=== PATIENT | male | born 1960 | race Caucasian/White ===

== ENCOUNTER 2025-01-15 14:57 | Inpatient (IN) | payer OTHER ==
[~2025-01-15] VITALS: Ht 182.9 cm; Wt 92.9 kg
--- NOTE | 2025-01-15 15:11 | ED.PDOC ---
History of Present Illness HPI Comments 64 y.o male with PMHx of HTN, HLD and tracheostomy, presents to the ED via EMS for an evaluation of HBP x today. EMS reports patient has 24 hour home health care nurse who noted elevated blood pressure today, on scene EMS had a pressure of 215/197 with a repeat reading of 238/78 upon ED arrival. Patient is as ymptomatic at this time, only complains of right arm and hand pain due to transportation to the ED. Chief Complaint: High Blood Pressure Time Seen by MD: 15:00 Reviewed Notes: Nurses Notes, Bindery Machine Tender Notes, Medications, Allergies Allergies: Coded Allergies: Empagliflozin (Verified Allergy, Unknown, 01/15/25) Information Source: Patient, Emergency Med Personnel Mode of Arrival: EMS Severity: Mild Timing: Hours Duration: Since onset Past Medical History PAST MEDICAL HISTORY: High Lipids, HTN Surgical History (Other): tracheostomy, and right acl Family History Family History: Reviewed,noncontributory to illness Social History Smoker: Non-Smoker Alcohol: Denies ETOH Use Drugs: Denies Drug Use Lives In: Home Constitutional: denies: chills, diaphoresis, fatigue, fever, malaise, sweats, weakness, others EENTM: denies: blurred vision, double vision, ear bleeding, ear discharge, ear drainage, ear pain, ear ringing, eye pain, eye redness, hearing loss, mouth pa in, mouth swelling, nasal discharge, nose bleeding, nose congestion, nose pain, photophobia, tearing, throat pain, throat swelling, voice changes, others Respiratory: denies: cough, hemoptysis, orthopnea, SOB at rest, shortness of breath, SOB with excertion, stridor, wheezing, others Cardiovascular: denies: chest pain, dizzy spells, diaphoresis, Dyspnea on exertion, edema, irregular heart beat, left arm pain, lightheadedness, palpitations, PND, syncope, others Gastrointestinal: denies: abdomen distended, abdominal pain, blood streaked bowels, constipated, diarrhea, dysphagia, difficulty swallowing, hematemesis, melena, nausea, poor appetite, poor fluid intake, rectal bleeding, rectal pain, vomiting, others Genitourinary: denies: burning, dysuria, flank pain, frequency, hematuria, incontinence, penile discharge, penile sore, pain, testicle pain, testicle swelling, urgency, others Neurological: denies: dizziness, fainting, headache, left sided numbness, left sided weakness, numbness, paresthesia, pre-existing deficit, right sided numbness, right sided weakness, seizure, speech problems, tingling, tremors, weakness, others Musculoskeletal: denies: back pain, gout, joint pain, joint swelling, muscle pain, muscle stiffness, neck pain, others Integumetry: denies: bruises, change in color, change in hair/nails, dryness, laceration, lesions, lumps, rash, wounds, others Allergic/Immunocompromised: denies: Difficulty Healing, Frequent Infections, Hives, Itching, others Hematologic/Lymphatic: denies: anemia, blood clots, easy bleeding, easy bruising, swollen glands, others Endocrine: denies: excessive hunger, excessive sweating, excessive thirst, excessive urination, flushing, intolerance to cold, intolerance to heat, unexplained weight gain, unexplained weight loss, others Psychiatric: denies: anxiety, bipolar disorder, depression, hopeless, panic disorder, schizophrenia, sleepless, suicidal, others All Other Systems: Reviewed and Negative Physical Exam General Appearance: Moderate Distress HEENT: Normal ENT Inspection, Pharynx Normal, TMs Normal Neck: Full Range of Motion, Non-Tender, Normal, Normal Inspection, Other (The patient has a tracheotomy placed) Respiratory: Chest Non-Tender, Lungs Clear, No Accessory Muscle Use, No Respiratory Distress, Normal Breath Sounds Cardiovascular: No Edema, No JVD, No Murmur, No Gallop, Normal Peripheral Pulses, Regular Rate/Rhythm Breast Exam: Deferred Gastrointestinal: No Organomegaly, Non Tender, No Pulsatile Mass, Normal Bowel Sounds, Soft Genitalia: Deferred Pelvic: Deferred Rectal: Deferred Extremities: No calf tenderness, Normal capillary refill, Normal inspection, Normal range of motion, Non-tender, No pedal edema Musculoskeletal : Apperance: Normal Neurologic: Alert, meter technician II-XII nml as Tested, No Motor Deficits, Normal Affect, Normal Mood, No Sensory Deficits Cerebellar Function: Normal Reflexes: Normal Skin: Dry, Normal Color, Warm Lymphatic: No Adenopathy Was a procedure done? Was a procedure done?: No Differential Dx Considerations may include: Essential HTN, Pulmonary HTN, Renal Artery Stenosis, Primary Aldosteronism , Ch ronic Kidney Disease X-Ray, Labs, Meds, VS Vital Signs Date Time Temp Pulse Resp B/P (MAP) Pulse Ox O2 Delivery O2 Flow Rate FiO2 01/15/25 20:18 99 Mechanical Ventilator+ 36 36 01/15/25 20:18 26 99 Mechanical Ventilator+ 36 36 01/15/25 16:37 91 01/15/25 16:15 Trach Collar 4 N/A 01/15/25 16:00 88 130/78 (95) 100 01/15/25 14:59 98.2 93 17 238/78 (131) 97 98.2 Lab Test 01/15/25 19:01 01/15/25 15:21 Range/Units POC Glucose 157 H 70-106 mg/dl White Blood Count 17.7 H 4.4-10.8 10^3/uL Red Blood Count 5.59 4.5-5.90 10^6/uL Hemoglobin 16.8 13.5-17.5 g/dL Hematocrit 50.5 41.0-53.0 % Mean Corpuscular Volume 90.4 80.0-100.0 fL Mean Corpuscular Hemoglobin 30.0 28.0-32.0 pg Mean Corpuscular Hemoglobin Concent 33.2 32.0-36.0 g/dL Red Cell Distribution Width 15.5 H 11.8-14.3 % Platelet Count 249 140-450 10^3/uL Mean Platelet Volume 10.0 6.9-10.8 fL Neutrophils (%) (Auto) 84.7 H 37.0-80.0 % Lymphocytes (%) (Auto) 4.5 L 10.0-50.0 % Monocytes (%) (Auto) 10.2 0.0-12.0 % Eosinophils (%) (Auto) 0.2 0.0-7.0 % Basophils (%) (Auto) 0.4 0.0-2.0 % Neutrophils # (Auto) 15.0 H 1.6-8.6 10 ^3/uL Lymphocytes # (Auto) 0.8 0.4-5.4 10 ^3/uL Monocytes # (Auto) 1.8 H 0-1.3 10 ^3/uL Eosinophils # (Auto) 0 0-0.8 10 ^3/uL Basophils # (Auto) 0.1 0-0.2 10 ^3/uL Nucleated Red Blood Cells 0.1 % Sodium Level 133 L 136-145 mmol/L Potassium Level 3.5 3.5-5.1 mmol/L Chloride Level 98 98-107 mmol/L Carbon Dioxide Level 23 20-31 mmol/L Anion Gap 12 5-15 Blood Urea Nitrogen 8 L 9-23 mg/dL Creatinine 0.21 L 0.700-1.30 mg/dL Glomerular Filtration Rate Calc 146 >90 mL/min BUN/Creatinine Ratio 38.1 H 10.0-20.0 Serum Glucose 138 H 74-106 mg/dL Calcium Level 9.1 8.7-10.4 mg/dL B-Type Natriuretic Peptide 44.98 0-100 pg/mL Current Medications Medications (Trade) Dose Ordered Sig/Robe Route Start Time Stop Time Status Last Admin Atropine Sulfate (Atropine Sulfate) 1 mg ONCE ONCE IV 01/15/25 17:30 01/15/25 17:31 DC 01/15/25 17:30 EXAM: XR Chest, 1 View IMPRESSION: Cardiomegaly with mild pulmonary congestion. HS:Y The patient was given atropine 1 mg IV push because he became somewhat bradycardic down into the low 40s and high 30s The CBC shows an elevated white blood cell count of 17.7 The patient's glucose is 157 as an Accu-Chek The chemistry panel is within normal limits The lactic acid level is pending Blood cultures x2 is pending The patient is being admitted at this time We did order an ABG as well as additional blood work but the family has refused any more blood work to be done in the patient Images Reviewed?: Images reviewed and evaluated by me Time of 1ST Reevaluation: 15:07 Reevaluation 1ST: Unchanged Patient Education/Counseling: Diagnosis, Treatment, Prognosis Family Education/Counseling: No Family Present SEPSIS Sepsis Screen Physician Orders Urinalysis (01/15/25 15:08) Heplock Iv (01/15/25 15:08) Ophthalmic Technician (01/15/25 15:08) Blood Pressure (01/15/25 15:08) Pulse Oximetry (01/15/25 15:08) Electrocardigram (01/15/25 15:08) Blood Culture (01/15/25 17:14) Lactic Acid W/ Reflex Order (01/15/25 17:14) Chest Portable (01/15/25 17:15) Head Without Contrast (01/15/25 17:15) Vital Signs Date Time Temp Pulse Resp B/P (MAP) Pulse Ox O2 Delivery O2 Flow Rate FiO2 01/15/25 20:18 99 Mechanical Ventilator+ 36 36 01/15/25 20:18 26 99 Mechanical Ventilator+ 36 36 01/15/25 16:37 91 01/15/25 16:15 Trach Collar 4 N/A 01/15/25 16:00 88 130/78 (95) 100 01/15/25 14:59 98.2 93 17 238/78 (131) 97 98.2 Laboratory Tests Test 01/15/25 15:21 White Blood Count 17.7 10^3/uL (4.4-10.8) H Medications Medications Dose Ordered Sig/Robe Route Start Time Stop Time Status Last Admin Dose Admin Atropine Sulfate 1 mg ONCE ONCE IV 01/15/25 17:30 01/15/25 17:31 DC 01/15/25 17:30 Departure 1 Departure Time of Disposition: 21:32 Impression: Primary Impression: Hypertensive crisis Additional Impressions: Bradycardia ALS (amyotrophic lateral sclerosis) Disposition: ADMITTED INPATIENT Admit to: Tele Condition: Fair Critical Care Note Critical Care Time?: Yes (45 min-critical care time only) Stability Stability form required: Yes Unstable for transfer: Telemetry monitoring (Telemetry monitoring required), ED Physician Assesment (Clinical assesment) Heart Score Heart Score: Heart Score Response (Comments) Value History N/A 0 EKG N/A 0 Age N/A 0 Risk Factors N/A 0 Troponin N/A 0 Total 0 I personally scribed for JEFF LOUISE MD ([email or web address]) on 01/15/25 at 15:11. Electronically submitted by Wilma Dueñas ([email or web address]). I personally scribed for JEFF LOUISE MD ([email or web address]) on 01/15/25 at 18:39. Electronically submitted by Wilma Dueñas ([facility]). JEFF LOUISE MD Jan 15, 2025 15:11
[2025-01-15 15:47] LABS: Hematocrit 50.5 % (41.0-53.0); Hemoglobin 16.8 g/dL (13.5-17.5); Mean Corpuscular Hemoglobin 30.0 pg (28.0-32.0); Mean Corpuscular Volume 90.4 fL (80.0-100.0); Nucleated Red Blood Cells % 0.1 %
[2025-01-15 15:54] LABS: Chloride 98 mmol/L (98-107)
[2025-01-15 15:55] LABS: Anion Gap 12 (5-15); Carbon Dioxide 23 mmol/L (20-31)
[2025-01-15 15:56] LABS: Calcium 9.1 mg/dL (8.7-10.4)
[2025-01-15 16:01] LABS: BUN/Creatinine Ratio 38.1 (10.0-20.0)
[2025-01-15 16:11] LABS: Blood Urea Nitrogen 8 mg/dL (9-23); Glucose 138 mg/dL (74-106); Potassium 3.5 mmol/L (3.5-5.1); Sodium 133 mmol/L (136-145)
[2025-01-15] MEDS: hydrALAZINE HCL 20 MG/ML VL IV ONE (16:15)
[2025-01-15] MEDS: ATROPINE SULF 1 MG/10ml SYR ONE (17:26)
[2025-01-15] MEDS: EPINEPHrine HCL 1 MG/10 ML SYRG ONE (17:26)
[2025-01-15] MEDS: ATROPINE SULF 1 MG/10ml SYR IV ONE (17:30)
--- NOTE | 2025-01-15 17:36 | DVH ---
EXAM: XR Chest, 1 View CLINICAL INDICATION: sob TECHNIQUE: Frontal view of the chest. COMPARISON: No relevant prior studies available. FINDINGS: LUNGS AND PLEURAL SPACES: See below. HEART: Cardiomegaly with mild pulmonary congestion. MEDIASTINUM: Unremarkable. Normal mediastinal contour. BONES/JOINTS: Unremarkable. No acute fracture. TUBES, LINES AND DEVICES: Tracheostomy tube in satisfactory position. OTHER FINDINGS: Comparison None. IMPRESSION: Cardiomegaly with mild pulmonary congestion. HS:Y
[2025-01-15] MEDS: ONDANSETRON HCL 4 MG/2 ML VIAL IV ONE (18:00)
[2025-01-15] MEDS: MORPHINE SULFATE INJ 2 MG/ml SYRG IV ONE (18:00)
--- NOTE | 2025-01-15 20:03 | DVH ---
CT HEAD WITHOUT CONTRAST INDICATION: aloc COMPARISON: None TECHNIQUE: CT of the head without intravenous contrast. RADIATION DOSE: CTDIvol: 53.99 mGy, DLP: 971.88 mGy*cm FINDINGS: There is no evidence of intracranial hemorrhage, infarct, extra-axial collection, mass effect, midli ne shift, herniation or hydrocephalus. The ventricles, sulci and cisterns are age appropriate. The gr ay-white differentiation is intact. Visualized paranasal sinuses are clear. Nonspecific left-sided ma stoid effusion. Soft tissues and osseous structures are unremarkable. IMPRESSION: No intracranial abnormality identified.
[2025-01-15] MEDS ORDERED: HYDROcodone-ACET 5/325MG TAB PO PRN (20:30)
[2025-01-15 21:44] VITALS: BP 124/78; PULSE 87; RESP 18; O2SAT 100
[2025-01-15] MEDS: PIPERACILLIN-TAZOB 3.375GM 100 ML IV SCH (22:00)
[2025-01-15 22:26] LABS: Lactic Acid w/Reflex 2.8 mmol/L (0.4-2.0)
[2025-01-15] MEDS: SODIUM CHLORIDE 0.9% 250 ML IV ONE (22:30)
--- NOTE | 2025-01-15 23:09 | DVHINCON2 ---
Date of service: Jan 15, 2025 Referring Physician Melany Fraknlin NP Reason for Consultation Acute hypoxic respiratory failure requiring mechanical ventilator. History of Present Illness A 64-year-old man with past medical history of ALS, tracheostomy with mechanical ventilation, hypertension, hyperlipidemia, and G-tube who presents to ED today with a chief complaint of altered mental status and elevated blood pressures. Patient with leukocytosis - WBC 17.7. It was reported he had two episodes of symptomatic bradycardia in the ED and was hypotensive, requiring vasopressors for blood pressure support. Patient was admitted for further care, and pulmonary consultation is requested for evaluation and management of acute hypoxic respiratory failure requiring mechanical ventilator. Review of Systems: 14-point review of systems negative unless otherwise noted above. Past Medical History: ALS, Tracheostomy with mechanical ventilation, hypertension, hyperlipidemia, and G-tube Past Surgical History: Tracheostomy, G-tube. Medications: Reviewed. Allergies: Empagliflozin. Family History: No family history of premature CAD. No family history of lung disorders. Social History: Nonsmoker. No alcohol or illicit drug use. Allergies: Coded Allergies: Empagliflozin (Verified Allergy, Unknown, 01/15/25) Piperacillin (Verified Adverse Reaction, Unknown, 01/16/25) POSSIBLE REACTION: HYPOTENSION AND DIAPHORETIC Home Meds Reported Medications Aspirin (ASPIRIN 81) 81 Mg Tab, 81 MG GT DAILY, TAB 01/16/25 Pseudoephedrine-Guaifenesin (Mucinex D) 1 Tab Tab, 1 TAB PO Q8HPRN, #20 TAB 01/16/25 Atorvastatin Calcium (ATORVASTATIN CALCIUM) 10 Mg Tab, 1 TAB PO DAILY, #30 TAB 5 Refills 01/16/25 Ipratropium [place] Hfa (Atrovent Hfa) 17 Mcg Aer, 2 PUFF INH QID, #12.9 GRAMS 3 Refills 01/16/25 Multiple Vitamin (Multivitamins) Tab, 1 TAB PO DAILY, #90 TAB 3 Refills 01/16/25 Lisinopril (Lisinopril) 20 Mg Tab, 1 TAB PO DAILY, #30 TAB 5 Refills 01/16/25 Polyethylene Glycol (Miralax) 17 Gm/Scoop Pow, 17 GM GT PRN PRN for FOR CONSTIPATION, POW 01/16/25 Acetaminophen (Acetaminophen) 325 Mg Tab, 500 MG PO Q6HR PRN for MILD PAIN (1-3 PAIN SCALE) for 30 Days, MG 0 Refills 01/16/25 Cholecalciferol (VITAMIN D3) 2,000 Unit Tab, 2500 UNIT GT DAILY, TAB 01/16/25 Insulin Glargine-Yfgn (Insulin Glargine) 100 Unit/Ml Inj, 28 UNIT SC HS, INJ 01/16/25 Ascorbic Acid (VITAMIN C TABLET) 500 Mg Tb, 1000 MG GT BID, TAB 01/16/25 Furosemide (Furosemide) 20 Mg Tab, 1 TAB PO DAILY PRN for BREAKTHROUGH PAIN, #90 TAB 1 Refill PRN SWELLING 01/16/25 Insulin Aspart (Novolog) 100 Unit/Ml Inj, 100 UNIT IJ, INJ PER SLIDING SCALE 01/16/25 Furosemide (Furosemide) 40 Mg Tab, 1 TAB PO DAILY, #30 TAB 5 Refills 01/16/25 Current Medications Current Medications Medications (Trade) Dose Ordered Sig/Robe Route PRN Reason Start Time Stop Time Status Last Admin Ipratropium [place] (Atrovent Medneb) 0.5 mg Q4HR NEB 01/15/25 22:00 Albuterol (Ventolin Medneb) 2.5 mg Q6HPRN PRN NEB SHORTNESS OF BREATH 01/15/25 20:30 Piperacillin Sod/ Tazobactam Sod 100 ml @ 100 mls/hr Q8HR IV 01/15/25 22:00 Enoxaparin Sodium (Lovenox) 40 mg DAILY SC 01/16/25 10:00 Pantoprazole Sodium (Protonix) 40 mg DAILY IV 01/16/25 10:00 Acetaminophen (Tylenol Tablet) 650 mg Q6HPRN PRN PO PAIN SCALE 1-3 OR TEMP>100.4 01/15/25 20:30 Acetaminophen/ Hydrocodone Bitart ([place] 5/325MG Tab) 1 tab Q6HPRN PRN PO PAIN SCALE 1 THRU 6 01/15/25 20:30 Vital Signs Vital Signs Date Time Temp Pulse Resp B/P (MAP) Pulse Ox O2 Delivery O2 Flow Rate FiO2 01/15/25 22:00 88 14 117/64 (81) 100 01/15/25 21:44 35 01/15/25 20:18 Mechanical Ventilator+ 01/15/25 18:30 98.1 98.1 01/15/25 16:15 4 Physical Exam Gen.: Patient lying in bed in medical ICU. On mechanical ventilator via trach. Head: Normocephalic, atraumatic. Eyes: PERRLA. Ears: Normal external anatomy. Throat: Endotracheal tube and orogastric tube in place. Neck: Trach in place. Chest: Transmitted breath sounds bilaterally. Decreased air entry bilaterally. No wheezing. Bibasilar crackles. Cardiovascular: Positive S1, positive S2. Regular rate and rhythm. Abdomen: Positive bowel sounds in all 4 quadrants. Soft, nontender, nondistended. : Agrawal in place. Normal external genitalia. Rectal: Deferred. Skin: Warm, dry. Intact. Extremities: 2+ radial pulses bilaterally. No lower extremity edema. Neuro: Off sedation Labs/Diagnostic Data Labs Test 01/15/25 21:06 01/15/25 19:01 01/15/25 15:21 Range/Units Lactic Acid Level 2.8 *H 0.4-2.0 mmol/L POC Glucose 157 H 70-106 mg/dl White Blood Count 17.7 H 4.4-10.8 10^3/uL Red Blood Count 5.59 4.5-5.90 10^6/uL Hemoglobin 16.8 13.5-17.5 g/dL Hematocrit 50.5 41.0-53.0 % Mean Corpuscular Volume 90.4 80.0-100.0 fL Mean Corpuscular Hemoglobin 30.0 28.0-32.0 pg Mean Corpuscular Hemoglobin Concent 33.2 32.0-36.0 g/dL Red Cell Distribution Width 15.5 H 11.8-14.3 % Platelet Count 249 140-450 10^3/uL Mean Platelet Volume 10.0 6.9-10.8 fL Neutrophils (%) (Auto) 84.7 H 37.0-80.0 % Lymphocytes (%) (Auto) 4.5 L 10.0-50.0 % Monocytes (%) (Auto) 10.2 0.0-12.0 % Eosinophils (%) (Auto) 0.2 0.0-7.0 % Basophils (%) (Auto) 0.4 0.0-2.0 % Neutrophils # (Auto) 15.0 H 1.6-8.6 10 ^3/uL Lymphocytes # (Auto) 0.8 0.4-5.4 10 ^3/uL Monocytes # (Auto) 1.8 H 0-1.3 10 ^3/uL Eosinophils # (Auto) 0 0-0.8 10 ^3/uL Basophils # (Auto) 0.1 0-0.2 10 ^3/uL Nucleated Red Blood Cells 0.1 % Sodium Level 133 L 136-145 mmol/L Potassium Level 3.5 3.5-5.1 mmol/L Chloride Level 98 98-107 mmol/L Carbon Dioxide Level 23 20-31 mmol/L Anion Gap 12 5-15 Blood Urea Nitrogen 8 L 9-23 mg/dL Creatinine 0.21 L 0.700-1.30 mg/dL Glomerular Filtration Rate Calc 146 >90 mL/min BUN/Creatinine Ratio 38.1 H 10.0-20.0 Serum Glucose 138 H 74-106 mg/dL Calcium Level 9.1 8.7-10.4 mg/dL B-Type Natriuretic Peptide 44.98 0-100 pg/mL Assessment Impression: Acute hypoxic respiratory failure On mechanical ventilator S/p tracheostomy Septic shock Symptomatic bradycardia Metabolic encephalopathy Amyotrophic lateral sclerosis Plan: On mechanical ventilator via tracheostomy. Vent settings: AC mode with RR 16, VT 450, Peep +5, with an Fi02 set at 35%. Patient has a 7.0 trach Shiley secured with trach ties. Cuff pressure set at [id number]. Titrate FIO2 to keep O2 saturation above 90%. Head of bed elevation Aspiration precautions Head CT showed no acute intracranial abnormalities CXR reviewed, notable for cardiomegaly with mild pulmonary congestion Trach care per RT Start bronchodilators. Antibiotics. Pressors as necessary for hemodynamic support Titrate to keep mean arterial pressure greater than 65 mmHg. Follow up Cardiology recommendations Monitor renal function Monitor electrolytes. Supplement as necessary. Monitor ins and outs. Maintain euvolemia. Monitor CBC, BMP, lactate GI prophylaxis. DVT prophylaxis. Prognosis: Poor given patient's multiple co-morbidities. Condition: Critical Rest of plan per hospitalist and other consultants. A total of 35 minutes of critical care time was spent reviewing the patient record, examining the patient, making a diagnostic and therapeutic plan, discussing this plan with the medical personnel, following up on diagnostic studies and following the patient for clinical stability excluding any and all procedures. At least 50% of this time was spent in direct, [id number] contact. Thank you, LEONEL Franklin, for allowing me to participate in this patient's care. Further recommendations will depend on the patient's clinical course. Please do not hesitate to contact me if you have any questions or concerns. This medical document was created using an electronic medical record system with [employer] dictation system. Although these documentations are being carefully reviewed, there may still be some phonetic and typographical changes. The errors are purely typographical, due to imperfection on the software program, and do not reflect any compromise in the patient's medical care. Plan discussed with: Other (RN/LEONEL Franklin/) XAVIER BECKER MD Jan 15, 2025 23:09
[2025-01-16] VITALS (103 sets, daily range): BP systolic 57–151; BP diastolic 27–80; PULSE 23–141; RESP 11–46; TEMP 98.2–99; O2SAT 98–100
[2025-01-16] MEDS: NOREPINEPHRINE 8 MG/250ML KIT 250 ML IV SCH
[2025-01-16] MEDS: IPRATROPIUM BROM 0.5 MG/2.5ML INH SOL NEB SCH (00:39)
[2025-01-16] MEDS: ALBUTEROL SULF 2.5 MG/0.5ML(0.5%) NEB SOLN NEB PRN (00:39)
--- NOTE | 2025-01-16 00:46 | DVHHP2 ---
Admitting Diagnosis: Septic shock , acute metabolic encephalopathy History of Present Illness History Source: Patient, Family (mother) Exam Limitations: No limitations HPI Mr. Walker Dutton is a 64 yo male with a history of ALS, Tracheostomy with mechanical ventilation, hypertension, hyperlipidemia, g tube who presents with a chief complaint of altered mental status and elevated blood pressures. Patient with leukocytosis WBC 17.7, It was reported he had two episodes of symptomatic bradycardia in the ED and is now hypotensive requiring vasopressors for blood pressure support. Patient alert and oriented x3 , mother at bedside. Patient denies headaches, dizziness, nausea, vomiting, fevers, chills, dysuria, hematuria. Patient reports he uses g tube for medication administration by his private in home nurses , patient reports he is able to eat with a tracheostomy valve. Patient admitted for further evaluation and treatment. Past Medical History Cardiac: HTN, Hyperlipidemia Pulmonary: No pertinent Hx Central Nervous System: No pertinent Hx GI: No pertinent Hx Hemotology/Oncology: No pertinent Hx Hepatobiliary: No pertinent Hx Psychiatric: No pertinent Hx Musculoskeletal: No pertinent Hx Rheumotologic: No pertinent Hx Infectious Disease: No peritnent Hx ENT: No pertinent Hx Renal/: No pertinent Hx Endocrine: No pertinent Hx Dermatology: No pertinent Hx Others ALS Others Tracheostomy Smoker: No Hx (Negative) Alocohol: None Drugs: None Lives with: With family Domestic Violence: Neg Review of Systems Constitutional: Weakness Ears, Nose, & Throat: No symptom reported Eyes: No symptom reported Pulmonary/Respiratory: No symptom reported Cardiovascular: No symptom reported Gastrointestinal: No symptom reported Genitourinary: No symptom reported Musculoskeletal: Other (generalized pain) Skin: No symptom reported Psychiatric: No symptom reported Endocrine: No symptom reported Hemotologic/Lymphatic: No symptom reported H&P Exam Vital Signs Vital Signs Date Time Temp Pulse Resp B/P (MAP) Pulse Ox O2 Delivery O2 Flow Rate FiO2 01/15/25 22:00 88 14 117/64 (81) 100 01/15/25 21:44 35 01/15/25 20:18 Mechanical Ventilator+ 01/15/25 18:30 98.1 98.1 01/15/25 16:15 4 General Appeara: Well developed, Well nourished, Normal Appearance Head Exam: Normal inspection Neck Exam: Normal inspection, Non-tender, Limited range of motion, Other (tracheostomy) Eye Exam: bilateral eye Normal inspection, bilateral eye PERRL, bilateral eye EOMI Ear Exam: bilateral ear Auricle normal Nasal Exam: Normal inspection Mouth: Normal Inspection Pulmonary/Respiratory: Normal inspection Cardiovascular/Chest: Normal inspection, Edema (BLE), Normal Rhythm, Tachycardia Peripheral Pulses: 2+ dorsalis pedis (R), 2+ dorsalis pedis (L), 2+ Radial (R), 2+ Radial (L) Abdominal Exam: Normal bowel sounds, Soft, No tenderness, Other (g tube) Rectal Exam: Deferred Back Exam: Decreased range of motion Legs: bilateral leg swelling STORE LEAD Exam: Normal hearing, Normal speech, PERRL Neuro/Mental St: Alert, Oriented Appearance: Appropriate appearance, Appropriate insight Eye contact/ Speech: Cooperative, Good eye contact, Normal speech Thoughts/Psych: Normal thought pattern Skin Exam: Normal inspection, Normal color, Warm/dry Labs/Xrays Labs Test 01/15/25 21:06 01/15/25 19:01 01/15/25 15:21 Range/Units Lactic Acid Level 2.8 *H 0.4-2.0 mmol/L POC Glucose 157 H 70-106 mg/dl White Blood Count 17.7 H 4.4-10.8 10^3/uL Red Blood Count 5.59 4.5-5.90 10^6/uL Hemoglobin 16.8 13.5-17.5 g/dL Hematocrit 50.5 41.0-53.0 % Mean Corpuscular Volume 90.4 80.0-100.0 fL Mean Corpuscular Hemoglobin 30.0 28.0-32.0 pg Mean Corpuscular Hemoglobin Concent 33.2 32.0-36.0 g/dL Red Cell Distribution Width 15.5 H 11.8-14.3 % Platelet Count 249 140-450 10^3/uL Mean Platelet Volume 10.0 6.9-10.8 fL Neutrophils (%) (Auto) 84.7 H 37.0-80.0 % Lymphocytes (%) (Auto) 4.5 L 10.0-50.0 % Monocytes (%) (Auto) 10.2 0.0-12.0 % Eosinophils (%) (Auto) 0.2 0.0-7.0 % Basophils (%) (Auto) 0.4 0.0-2.0 % Neutrophils # (Auto) 15.0 H 1.6-8.6 10 ^3/uL Lymphocytes # (Auto) 0.8 0.4-5.4 10 ^3/uL Monocytes # (Auto) 1.8 H 0-1.3 10 ^3/uL Eosinophils # (Auto) 0 0-0.8 10 ^3/uL Basophils # (Auto) 0.1 0-0.2 10 ^3/uL Nucleated Red Blood Cells 0.1 % Sodium Level 133 L 136-145 mmol/L Potassium Level 3.5 3.5-5.1 mmol/L Chloride Level 98 98-107 mmol/L Carbon Dioxide Level 23 20-31 mmol/L Anion Gap 12 5-15 Blood Urea Nitrogen 8 L 9-23 mg/dL Creatinine 0.21 L 0.700-1.30 mg/dL Glomerular Filtration Rate Calc 146 >90 mL/min BUN/Creatinine Ratio 38.1 H 10.0-20.0 Serum Glucose 138 H 74-106 mg/dL Calcium Level 9.1 8.7-10.4 mg/dL B-Type Natriuretic Peptide 44.98 0-100 pg/mL Assessment/Plan Problem List: (1) Septic shock (2) Metabolic encephalopathy (3) Bradycardia (4) ALS (amyotrophic lateral sclerosis) Plan This is a 64 yo male with known history of ALS, hypertension, hyperlipidemia, tracheostomy on mechanical ventilation who presents with altered mental status and hypertension. Patient found to have 1. Septic shock 2. Symptomatic Bradycardia 3. Metabolic encephalopathy 4. Acute respiratory failure 5. hx of ALS Plan Admit [facility] Cardiology consultation , 2D echocardiogram Pulmonology consultation recommendation appreciated Bronchodilators , continue with mechanical ventilation as per pulmonology recommendation Vasopressors as needed for blood pressure support Monitor CBC, BMP, lactate DVT ppx GI ppx Swallow evaluation/Aspiration precautions Chip Separator consultation Discussed all above with patient and patient mother , both verbalized agreement and understanding of care plan. All questions were answered. Discussed assessment and care plan with supervising MD. Plan discussed with: Patient, Other Code Visit Code Visit Total Time (mins): 45 Additional Comments Additional Comments Additional Comments Patient's chart is reviewed and discussed with the nurse practitioner. Patient is seen evaluated and admitted by TEACHING DIETITIAN this morning. I agree with her evaluation, documentation, assessment and care plan as outlined. DAR BLEVINS T[employer]T WALL SUPERVISOR Jan 16, 2025 00:46 DESEAN BERMUDEZ MD Jan 16, 2025 15:55
[2025-01-16 05:30] LABS: Hematocrit 48.1 % (41.0-53.0); Hemoglobin 16.0 g/dL (13.5-17.5); Mean Corpuscular Hemoglobin 29.7 pg (28.0-32.0); Mean Corpuscular Volume 88.9 fL (80.0-100.0)
[2025-01-16 05:51] LABS: Anion Gap 17 (5-15); Carbon Dioxide 21 mmol/L (20-31); Chloride 98 mmol/L (98-107)
[2025-01-16 05:52] LABS: Calcium 9.4 mg/dL (8.7-10.4); Potassium 3.4 mmol/L (3.5-5.1); Sodium 136 mmol/L (136-145)
[2025-01-16 05:57] LABS: BUN/Creatinine Ratio 58.3 (10.0-20.0); Blood Urea Nitrogen 14 mg/dL (9-23)
[2025-01-16 05:58] LABS: Total Cells Counted 100.0 (100)
[2025-01-16 06:01] LABS: Glucose 138 mg/dL (74-106); Lactic Acid w/Reflex 2.1 mmol/L (0.4-2.0)
[2025-01-16] MEDS ORDERED: DEXTROSE (50%) 50ML SYRG IV PRN (06:45)
[2025-01-16] MEDS: InsuLIN REG 1unit/0.01ml Soln (100units/ml) SC SCH (06:54)
[2025-01-16] MEDS: ACCU-CHEK COMFORT CURVE STRIP VI SCH (06:54)
[2025-01-16] MEDS ORDERED: VANCOMYCIN PER PHARMACY 0 MG IV SCH (12:15)
[2025-01-16] MEDS: ENOXAPARIN SOD 40 MG/0.4 ML SYRINGE SC SCH (12:57)
[2025-01-16] MEDS: PANTOPRAZOLE 40 MG/10 ML VIAL INJ IV SCH (12:57)
[2025-01-16] MEDS: LIDOCAINE HCL 5 % TOP OINT 35 GM TOP ONE (12:58)
[2025-01-16 14:03] LABS: Urine Protein, UAD 1+ (Negative)
[2025-01-16] MEDS: VANCOMYCIN 1GM/250ML KIT 250 ML IV SCH (14:15)
[2025-01-16] MEDS: POTASSIUM EFFERVESENT TAB 25 MEQ GT ONE (15:30)
[2025-01-16] MEDS: POTASSIUM CHLORIDE 20 MEQ, LIDOCAINE 1% (LOCAL ANESTH.) 2 ML in SODIUM CHL 0.9% 100 ML IV ONE (18:49)
[2025-01-16] MEDS: FREE WATER GT SCH (18:49)
[2025-01-16] MEDS ORDERED: INSU100I28 IJ (20:13)
[2025-01-16] MEDS ORDERED: LISI20TA56 PO (20:13)
[2025-01-16] MEDS ORDERED: MULT-1018 PO (20:13)
[2025-01-16] MEDS ORDERED: PSEU120T18 PO (20:13)
[2025-01-16] MEDS ORDERED: POLY33505 GT (20:13)
[2025-01-16] MEDS ORDERED: ASCO500T11 GT (20:13)
[2025-01-16] MEDS ORDERED: INSU100I70 SC (20:13)
[2025-01-16] MEDS ORDERED: ATOR10TA52 PO (20:13)
[2025-01-16] MEDS ORDERED: IPRIH INH (20:13)
[2025-01-16] MEDS ORDERED: FURO20TA3 PO (20:13)
[2025-01-16] MEDS ORDERED: FURO40TA4 PO (20:13)
[2025-01-16] MEDS ORDERED: ASPI-498 GT (20:13)
[2025-01-16] MEDS ORDERED: CHOL20007 GT (20:13)
[2025-01-16] MEDS ORDERED: ACET-1881 PO (20:13)
[2025-01-16] MEDS: cefTRIAXone 1GM/50ML D5W 50 ML IV ONE (20:44)
[2025-01-16] MEDS ORDERED: LINEZOLID 600MG/300ML 300 ML IV SCH (20:45)
[2025-01-16] MEDS: LINEZOLID 600MG/300ML 300 ML IV ONE (21:28)
--- NOTE | 2025-01-16 22:54 | DVHPN2 ---
Progress Note - Dictate Date Seen: Jan 16, 2025 Medical Necessity Reason Pt with a Central, PICC or Fol: No Subjective Patient seen and examined at bedside. On mechanical ventilator via trach Overnight events reviewed. vital signs Vital Sign Date Time Temp Pulse Resp B/P (MAP) Pulse Ox O2 Delivery O2 Flow Rate FiO2 01/16/25 22:23 127 27 115/49 (71) 100 35 01/16/25 20:00 Mechanical Ventilator+ 01/16/25 20:00 98.9 98.9 01/15/25 16:15 4 Total Intake and Output 01/15/25 01/15/25 01/16/25 15:00 23:00 07:00 Intake Total 0 ml Output Total 200 ml Balance -200 ml medications Current Medications Medications Dose Ordered Sig/Robe Route Start Time Stop Time Status Last Admin Dose Admin Ipratropium [place] 0.5 mg Q4HR NEB 01/15/25 22:00 01/16/25 22:39 0.5 MG Albuterol 2.5 mg Q6HPRN PRN NEB 01/15/25 20:30 01/16/25 18:11 2.5 MG Enoxaparin Sodium 40 mg DAILY SC 01/16/25 10:00 01/16/25 12:57 40 MG Pantoprazole Sodium 40 mg DAILY IV 01/16/25 10:00 01/16/25 12:57 40 MG Acetaminophen 650 mg Q6HPRN PRN PO 01/15/25 20:30 Acetaminophen/ Hydrocodone Bitart 1 tab Q6HPRN PRN PO 01/15/25 20:30 Norepinephrine Bitartrate 250 ml @ 3.75 mls/hr Q24H IV 01/16/25 00:00 Diagnostic Test (Pha) 1 strip ACHS 01/16/25 07:00 01/16/25 21:39 1 STRIP Insulin Human Regular ACHS SC 01/16/25 07:00 01/16/25 21:41 3 UNITS Dextrose 50 ml UD PRN IV 01/16/25 06:45 Ceftriaxone Sodium 50 ml @ 100 mls/hr DAILY@09 IV 01/17/25 09:00 Purified Water 400 ml Q6HR GT 01/16/25 18:00 01/16/25 18:49 400 ML Linezolid 300 ml @ 150 mls/hr Q12HR IV 01/17/25 10:00 objective Gen.: Patient lying in bed in medical ICU. On mechanical ventilator via trach. Head: Normocephalic, atraumatic. Eyes: PERRLA. Ears: Normal external anatomy. Throat: Endotracheal tube and orogastric tube in place. Neck: Trach in place. Chest: Transmitted breath sounds bilaterally. Decreased air entry bilaterally. No wheezing. Bibasilar crackles. Cardiovascular: Positive S1, positive S2. Regular rate and rhythm. Abdomen: Positive bowel sounds in all 4 quadrants. Soft, nontender, nondistended. : Agrawal in place. Normal external genitalia. Rectal: Deferred. Skin: Warm, dry. Intact. Extremities: 2+ radial pulses bilaterally. No lower extremity edema. Neuro: Off sedation laboratory and microbiology Laboratory Tests 01/16/25 05:09 Test 01/16/25 05:09 Range/Units Serum Glucose 138 H 74-106 mg/dL Assessment/Plan Impression: Acute hypoxic respiratory failure On mechanical ventilator S/p tracheostomy Septic shock Symptomatic bradycardia Metabolic encephalopathy Amyotrophic lateral sclerosis Events: Remains on vent via trach Vent support PRN OK to come off ventilator for meals. Chest x-ray reviewed, notable for pulmonary vascular congestion. Note, pt had a reaction to Zosyn and required pressors for 1 hour, tapered off. Currently off pressors. Monitor hemodynamics. Adjusted antibiotics to ceftriaxone. Patient refused vancomycin. Continue abx MRSA screen negative. Continue trach care per RT. Obtain ultrasound venous Doppler of bilateral lower extremities to rule out DVT. Lactic acid improving. Free water for hydration d/t metabolic acidosis Monitor renal function Monitor electrolytes. Supplement as necessary. Monitor ins and outs. Labs and imaging reviewed. Rest of plan as noted below. Plan: On mechanical ventilator via tracheostomy. Vent settings: AC mode with RR 16, VT 450, Peep +5, with an Fi02 set at 35%. Patient has a 7.0 trach Shiley secured with trach ties. Cuff pressure set at [id number]. Titrate FIO2 to keep O2 saturation above 90%. Head of bed elevation Aspiration precautions Head CT showed no acute intracranial abnormalities CXR reviewed, notable for cardiomegaly with mild pulmonary congestion Trach care per RT Start bronchodilators. Antibiotics. Pressors as necessary for hemodynamic support Titrate to keep mean arterial pressure greater than 65 mmHg. Follow up Cardiology recommendations Monitor renal function Monitor electrolytes. Supplement as necessary. Monitor ins and outs. Maintain euvolemia. Monitor CBC, BMP, lactate GI prophylaxis. DVT prophylaxis. Prognosis: Poor given patient's multiple co-morbidities. Condition: Critical Rest of plan per hospitalist and other consultants. A total of 35 minutes of critical care time was spent reviewing the patient record, examining the patient, making a diagnostic and therapeutic plan, discussing this plan with the medical personnel, following up on diagnostic studies and following the patient for clinical stability excluding any and all procedures. At least 50% of this time was spent in direct, [id number] contact. Thank you, LEONEL Franklin, for allowing me to participate in this patient's care. Further recommendations will depend on the patient's clinical course. Please do not hesitate to contact me if you have any questions or concerns. This medical document was created using an electronic medical record system with [employer] dictation system. Although these documentations are being carefully reviewed, there may still be some phonetic and typographical changes. The errors are purely typographical, due to imperfection on the software program, and do not reflect any compromise in the patient's medical care. Dietary Evaluation Review Comments: 1) Advance to CCHO 60gm + cardiac diet as medically feasible 2) If pt cannot tolerate PO, consider TF Glucerna 1.2Cal @ 70ml/hr (goal). 3) Monitor wt trend, lab values, skin integrity Expected Outcomes/Goals: To meet >75% estimated needs Fu 2-3 days Plan discussed with: Other (KATJA Rodriguez) Critical Care Time(min): 35 XAVIER BECKER MD Jan 16, 2025 22:54
[2025-01-17] VITALS (106 sets, daily range): BP systolic 86–148; BP diastolic 30–85; PULSE 80–138; RESP 16–43; TEMP 98.4–99; O2SAT 100
--- NOTE | 2025-01-17 01:14 | DVH ---
Bilateral lower extremity venous duplex Clinical History: SWELLING Comparison: None Technique: Duplex Doppler evaluation of the deep venous systems of both lower extremities from the common femora l veins to the popliteal veins including color Doppler and spectral/pulsed waveform analysis was perf ormed. Findings: RIGHT SIDE: The common femoral vein demonstrates appropriate compressibility and waveform variability. There is compressibility/patency of the great saphenous vein at the proximal thigh. The femoral vein demonstrates appropriate compressibility and waveform variability. The deep femoral vein demonstrates appropriate compressibility and waveform variability. The popliteal vein demonstrates appropriate compressibility and waveform variability. There is normal compressibility at the tibioperoneal trunk. LEFT SIDE: The common femoral vein demonstrates appropriate compressibility and waveform variability. There is compressibility/patency of the great saphenous vein at the proximal thigh. The femoral vein demonstrates appropriate compressibility and waveform variability. The deep femoral vein demonstrates appropriate compressibility and waveform variability. The popliteal vein demonstrates appropriate compressibility and waveform variability. There is normal compressibility at the tibioperoneal trunk. Impression: 1. No right or left femoropopliteal venous thrombosis.
[2025-01-17 05:05] LABS: Hematocrit 44.0 % (41.0-53.0); Hemoglobin 14.8 g/dL (13.5-17.5); Mean Corpuscular Hemoglobin 29.5 pg (28.0-32.0); Mean Corpuscular Volume 87.5 fL (80.0-100.0); Nucleated Red Blood Cells % 0.1 %
[2025-01-17 05:25] LABS: Alanine Aminotransferase 27 U/L (7-40); Albumin 4.1 g/dL (3.2-4.8); Alkaline Phosphatase 86 U/L (46-116); Anion Gap 13 (5-15); BUN/Creatinine Ratio 45.7 (10.0-20.0); Bilirubin, Total 0.7 mg/dL (0.2-1.0); Blood Urea Nitrogen 21 mg/dL (9-23); Calcium 8.9 mg/dL (8.7-10.4); Chloride 101 mmol/L (98-107); Total Protein 6.3 g/dL (5.7-8.2)
[2025-01-17 05:26] LABS: Carbon Dioxide 20 mmol/L (20-31); Glucose 239 mg/dL (74-106); Potassium 3.0 mmol/L (3.5-5.1); Sodium 134 mmol/L (136-145)
[2025-01-17] MEDS: cefTRIAXone 1GM/50ML D5W 50 ML IV SCH (09:18)
[2025-01-17] MEDS: LINEZOLID 600MG/300ML 300 ML IV SCH (10:08)
[2025-01-17] MEDS: POTASSIUM CHLORIDE 40 MEQ, LIDOCAINE 1% (LOCAL ANESTH.) 4 ML in SODIUM CHL 0.9% 250 ML IV ONE (12:34)
--- NOTE | 2025-01-17 14:04 | DVHPN2 ---
Progress Note - Dictate Date Seen: Jan 17, 2025 Medical Necessity Reason Pt with a Central, PICC or Fol: No Subjective Clinically feeling better. However his blood cultures two bottles came back positive for Gram-positive cocci. Final results are pending. Patient refused vancomycin yesterday due to worried about kidney failure. Therefore he is started on Zyvox. vital signs Vital Sign Date Time Temp Pulse Resp B/P (MAP) Pulse Ox O2 Delivery O2 Flow Rate FiO2 01/17/25 13:15 99 24 103/61 (75) 100 01/17/25 12:30 99.0 99.0 01/17/25 11:57 35 01/17/25 10:00 Mechanical Ventilator 01/15/25 16:15 4 Total Intake and Output 01/16/25 01/16/25 01/17/25 15:00 23:00 07:00 Intake Total 3.75 ml 562 ml 1100 ml Output Total 550 ml 580 ml Balance 3.75 ml 12 ml 520 ml medications Current Medications Medications Dose Ordered Sig/Robe Route Start Time Stop Time Status Last Admin Dose Admin Ipratropium [place] 0.5 mg Q4HR NEB 01/15/25 22:00 01/16/25 22:39 0.5 MG Albuterol 2.5 mg Q6HPRN PRN NEB 01/15/25 20:30 01/17/25 00:13 2.5 MG Enoxaparin Sodium 40 mg DAILY SC 01/16/25 10:00 01/17/25 09:18 40 MG Pantoprazole Sodium 40 mg DAILY IV 01/16/25 10:00 01/17/25 09:18 40 MG Acetaminophen 650 mg Q6HPRN PRN PO 01/15/25 20:30 Acetaminophen/ Hydrocodone Bitart 1 tab Q6HPRN PRN PO 01/15/25 20:30 Norepinephrine Bitartrate 250 ml @ 3.75 mls/hr Q24H IV 01/16/25 00:00 Diagnostic Test (Pha) 1 strip ACHS 01/16/25 07:00 01/17/25 11:56 1 STRIP Insulin Human Regular ACHS SC 01/16/25 07:00 01/17/25 11:58 4 UNITS Dextrose 50 ml UD PRN IV 01/16/25 06:45 Ceftriaxone Sodium 50 ml @ 100 mls/hr DAILY@09 IV 01/17/25 09:00 01/17/25 09:18 100 MLS/HR Purified Water 400 ml Q6HR GT 01/16/25 18:00 01/17/25 12:00 400 ML Linezolid 300 ml @ 150 mls/hr Q12HR IV 01/17/25 10:00 01/17/25 10:08 150 MLS/HR Enteral Nutritional Formula 110 ml QID PO 01/17/25 12:00 objective Alert awake oriented x3. Comfortable in bed without distress. HEENT neck supple no JVD. Heart regular rate and rhythm S1 plus S2. Lungs fair air movement without any audible wheezing. Abdomen obese positive bowel sounds. Extremities positive edema. laboratory and microbiology Laboratory Tests 01/17/25 04:40 Test 01/17/25 04:40 Range/Units Serum Glucose 239 #H 74-106 mg/dL Assessment/Plan Patient's blood pressure is stable. Patient is not septic. Continue current antibiotics and wait for final blood culture results and recommendations from Infectious Disease. Meantime continue tube feeds and also send sputum cultures if possible. Otherwise continue rest of supportive care and treatment as he is on. Continue current ventilator settings. Further clinical management per clinical course. Discussed with the nurse and patient regarding care plan. His ultrasound of the legs done yesterday negative for any DVT. Problems(with codes): (1) Gram-positive cocci bacteremia (2) Tracheostomy status (3) Presence of externally removable percutaneous endoscopic gastrostomy (PEG) tube (4) ALS (amyotrophic lateral sclerosis) Dietary Evaluation Review Comments: 1) Advance to [facility] 60gm + cardiac diet as medically feasible 2) If pt cannot tolerate PO, consider TF Glucerna 1.2Cal @ 70ml/hr (goal). 3) Monitor wt trend, lab values, skin integrity Expected Outcomes/Goals: To meet >75% estimated needs Fu 2-3 days Plan discussed with: Patient, Other DESEAN BERMUDEZ MD Jan 17, 2025 14:04
[2025-01-17] MEDS: Glucerna Carbsteady SHAKE Chocolate 8oz PO SCH (15:35)
--- NOTE | 2025-01-17 17:52 | DVHSR ---
APPROVED REPORT EXAM: Two-dimensional and M-mode echocardiogram with Doppler and color Doppler. Blood Pressure: 115/61 mmHg INDICATION Bradycardia RISK FACTORS Height: 6', Weight: 204 Mitral Valve MitralMitral Stenosis E/A ratio0.02D MVAcm2 Other Information Quality : Technically LimitedRhythm : Technically limited study due to body habitus, patient position, and on vent. Conclusion Technically difficult study. Difficult acoustic windows. Off axis views. There appears to be mild aortic root enlargement. Mild concentric LVH. Valves are normal. EF of 60% with normal RV function. Doppler is unremarkable. Small pericardial effusion not hemodynamically significant. Pericardial fat pad noted.
[2025-01-17 20:15] LABS: Potassium 4.0 mmol/L (3.5-5.1)
[2025-01-17 20:22] LABS: Magnesium 2.2 mg/dL (1.6-2.6)
--- NOTE | 2025-01-17 23:37 | DVHPN2 ---
Progress Note - Dictate Date Seen: Jan 17, 2025 Medical Necessity Reason Pt with a Central, PICC or Fol: No Subjective Patient seen and examined at bedside. On mechanical ventilator via trach Overnight events reviewed. vital signs Vital Sign Date Time Temp Pulse Resp B/P (MAP) Pulse Ox O2 Delivery O2 Flow Rate FiO2 01/17/25 22:11 82 36 112/65 (81) 100 35 01/17/25 20:00 98.6 98.6 01/17/25 20:00 Mechanical Ventilator+ 01/15/25 16:15 4 Total Intake and Output 01/16/25 01/16/25 01/17/25 15:00 23:00 07:00 Intake Total 3.75 ml 562 ml 1100 ml Output Total 550 ml 580 ml Balance 3.75 ml 12 ml 520 ml medications Current Medications Medications Dose Ordered Sig/Robe Route Start Time Stop Time Status Last Admin Dose Admin Ipratropium [place] 0.5 mg Q4HR NEB 01/15/25 22:00 01/17/25 22:11 0.5 MG Albuterol 2.5 mg Q6HPRN PRN NEB 01/15/25 20:30 01/17/25 22:11 2.5 MG Enoxaparin Sodium 40 mg DAILY SC 01/16/25 10:00 01/17/25 09:18 40 MG Pantoprazole Sodium 40 mg DAILY IV 01/16/25 10:00 01/17/25 09:18 40 MG Acetaminophen 650 mg Q6HPRN PRN PO 01/15/25 20:30 Acetaminophen/ Hydrocodone Bitart 1 tab Q6HPRN PRN PO 01/15/25 20:30 Norepinephrine Bitartrate 250 ml @ 3.75 mls/hr Q24H IV 01/16/25 00:00 Diagnostic Test (Pha) 1 strip ACHS 01/16/25 07:00 01/17/25 21:41 1 STRIP Insulin Human Regular ACHS SC 01/16/25 07:00 01/17/25 22:28 2 UNITS Dextrose 50 ml UD PRN IV 01/16/25 06:45 Ceftriaxone Sodium 50 ml @ 100 mls/hr DAILY@09 IV 01/17/25 09:00 01/17/25 09:18 100 MLS/HR Purified Water 400 ml Q6HR GT 01/16/25 18:00 01/17/25 17:21 400 ML Linezolid 300 ml @ 150 mls/hr Q12HR IV 01/17/25 10:00 01/17/25 21:41 150 MLS/HR Enteral Nutritional Formula 110 ml QID PO 01/17/25 12:00 01/17/25 21:41 110 ML Furosemide 40 mg DAILY PO 01/18/25 10:00 objective Gen.: Patient lying in bed in medical ICU. On mechanical ventilator via trach. Head: Normocephalic, atraumatic. Eyes: PERRLA. Ears: Normal external anatomy. Throat: Endotracheal tube and orogastric tube in place. Neck: Trach in place. Chest: Transmitted breath sounds bilaterally. Decreased air entry bilaterally. No wheezing. Bibasilar crackles. Cardiovascular: Positive S1, positive S2. Regular rate and rhythm. Abdomen: Positive bowel sounds in all 4 quadrants. Soft, nontender, nondistended. : Agrawal in place. Normal external genitalia. Rectal: Deferred. Skin: Warm, dry. Intact. Extremities: 2+ radial pulses bilaterally. No lower extremity edema. Neuro: Off sedation laboratory and microbiology Laboratory Tests 01/17/25 19:52 01/17/25 04:40 Test 01/17/25 04:40 Range/Units Serum Glucose 239 #H 74-106 mg/dL Assessment/Plan Impression: Acute hypoxic respiratory failure On mechanical ventilator S/p tracheostomy Septic shock Symptomatic bradycardia Metabolic encephalopathy Amyotrophic lateral sclerosis Events: Remains on vent via trach Vent support PRN OK to come off ventilator for meals. Note, pt had a reaction to Zosyn on 01/16/25 and required pressors for 1 hour, tapered off. Remains off pressors. Monitor hemodynamics. Systolic blood pressure is in the 90s Continue antibiotics MRSA screen negative. Continue bronchodilators Continue trach care per RT. Ultrasound venous Doppler of bilateral lower extremities was negative for DVT. Lactic acid improving. Free water for hydration d/t metabolic acidosis Monitor renal function Monitor electrolytes. Supplement as necessary. Monitor ins and outs. Chest x-ray was notable for pulmonary vascular congestion. Labs and imaging reviewed. Rest of plan as noted below. Plan: On mechanical ventilator via tracheostomy. Vent settings: AC mode with RR 16, VT 450, Peep +5, with an Fi02 set at 35%. Patient has a 7.0 trach Shiley secured with trach ties. Cuff pressure set at [id number]. Titrate FIO2 to keep O2 saturation above 90%. Head of bed elevation Aspiration precautions Head CT showed no acute intracranial abnormalities CXR reviewed, notable for cardiomegaly with mild pulmonary congestion Trach care per RT Bronchodilators. Antibiotics. Pressors as necessary for hemodynamic support Titrate to keep mean arterial pressure greater than 65 mmHg. Follow up Cardiology recommendations Monitor renal function Monitor electrolytes. Supplement as necessary. Monitor ins and outs. Maintain euvolemia. Monitor CBC, BMP, lactate GI prophylaxis. DVT prophylaxis. Prognosis: Poor given patient's multiple co-morbidities. Rest of plan per hospitalist and other consultants. Thank you, VP RESPIRATORY Rigoberto, for allowing me to participate in this patient's care. Further recommendations will depend on the patient's clinical course. Please do not hesitate to contact me if you have any questions or concerns. This medical document was created using an electronic medical record system with [employer] dictation system. Although these documentations are being carefully reviewed, there may still be some phonetic and typographical changes. The errors are purely typographical, due to imperfection on the software program, and do not reflect any compromise in the patient's medical care. Dietary Evaluation Review Comments: 1) Advance to CCHO 60gm + cardiac diet as medically feasible 2) If pt cannot tolerate PO, consider TF Glucerna 1.2Cal @ 70ml/hr (goal). 3) Monitor wt trend, lab values, skin integrity Expected Outcomes/Goals: To meet >75% estimated needs Fu 2-3 days Plan discussed with: Patient, Other (RN) XAVIER BECKER MD Jan 17, 2025 23:37
[2025-01-18] VITALS (43 sets, daily range): BP systolic 107–132; BP diastolic 55–71; PULSE 91–119; RESP 9–40; TEMP 97.9–98.9; O2SAT 100
[2025-01-18 05:05] LABS: Hematocrit 41.5 % (41.0-53.0); Hemoglobin 14.1 g/dL (13.5-17.5); Mean Corpuscular Hemoglobin 30.0 pg (28.0-32.0); Mean Corpuscular Volume 88.2 fL (80.0-100.0); Nucleated Red Blood Cells % 0.0 %
[2025-01-18 05:20] LABS: Chloride 105 mmol/L (98-107); Potassium 3.6 mmol/L (3.5-5.1); Sodium 138 mmol/L (136-145)
[2025-01-18 05:21] LABS: Anion Gap 13 (5-15); Calcium 9.0 mg/dL (8.7-10.4); Carbon Dioxide 20 mmol/L (20-31)
[2025-01-18 05:26] LABS: BUN/Creatinine Ratio 63.2 (10.0-20.0); Blood Urea Nitrogen 12 mg/dL (9-23)
[2025-01-18 05:34] LABS: Glucose 165 mg/dL (74-106)
[2025-01-18] MEDS: FUROSEMIDE 20 MG TAB PO SCH (10:03)
--- NOTE | 2025-01-18 12:53 | DVHINCON2 ---
Date Seen: Jan 18, 2025 Referring Physician LEONEL Franklin Reason for Consultation Symptomatic bradycardia History of Present Illness This is a 64-year-old male patient who presents to the emergency room with chief complaint of hypertension. The patient reports that his home health nurse was g etting readings of his systolic blood pressures greater than 200s at home. He came to the emergency room for further evaluation. Upon emergency room arrival, the patient's blood pressure was noted to reach as high as 230/78. Cardiology was consulted because while in the emergency room he was noted to have bradycardia episodes. No twelve lead electrocardiogram done during admission. One cardiac strips seen in patient's chart upon admission shows patient was in sinus bradycardia without any significant pauses or atrioventricular blocks. At the time of assessment, the patient is back in a normal sinus rhythm on dishcloth folder. Patient denies any cardiac symptoms. Significant past medical history includes hypertension, dyslipidemia, amyotrophic lateral sclerosis (ALS), tracheostomy, G-tube, type 2 diabetes mellitus, chronic pain, and bed-bound. Past Medical History Past medical history reviewed. No other significant than mentioned above. Past Surgical History Tracheostomy G-tube Right ACL repair Family History: Chronic obstructive pulmonary disease G8 SISTER Diabetes mellitus G8 MOTHER G8 FATHER Hypertension G8 FATHER Family History Family history reviewed. Social History Denies the use of tobacco, alcohol or illicit drugs. Allergies: Coded Allergies: Empagliflozin (Verified Allergy, Unknown, 01/15/25) Piperacillin (Verified Adverse Reaction, Unknown, 01/16/25) POSSIBLE REACTION: HYPOTENSION AND DIAPHORETIC Home Meds Reported Medications Aspirin (ASPIRIN 81) 81 Mg Tab, 81 MG GT DAILY, TAB 01/16/25 Pseudoephedrine-Guaifenesin (Mucinex D) 1 Tab Tab, 1 TAB PO Q8HPRN, #20 TAB 01/16/25 Atorvastatin Calcium (ATORVASTATIN CALCIUM) 10 Mg Tab, 1 TAB PO DAILY, #30 TAB 5 Refills 01/16/25 Ipratropium [place] Hfa (Atrovent Hfa) 17 Mcg Aer, 2 PUFF INH QID, #12.9 GRAMS 3 Refills 01/16/25 Multiple Vitamin (Multivitamins) Tab, 1 TAB PO DAILY, #90 TAB 3 Refills 01/16/25 Lisinopril (Lisinopril) 20 Mg Tab, 1 TAB PO DAILY, #30 TAB 5 Refills 01/16/25 Polyethylene Glycol (Miralax) 17 Gm/Scoop Pow, 17 GM GT PRN PRN for FOR CONSTIPATION, POW 01/16/25 Acetaminophen (Acetaminophen) 325 Mg Tab, 500 MG PO Q6HR PRN for MILD PAIN (1-3 PAIN SCALE) for 30 Days, MG 0 Refills 01/16/25 Cholecalciferol (VITAMIN D3) 2,000 Unit Tab, 2500 UNIT GT DAILY, TAB 01/16/25 Insulin Glargine-Yfgn (Insulin Glargine) 100 Unit/Ml Inj, 28 UNIT SC HS, INJ 01/16/25 Ascorbic Acid (VITAMIN C TABLET) 500 Mg Tb, 1000 MG GT BID, TAB 01/16/25 Furosemide (Furosemide) 20 Mg Tab, 1 TAB PO DAILY PRN for BREAKTHROUGH PAIN, #90 TAB 1 Refill PRN SWELLING 01/16/25 Insulin Aspart (Novolog) 100 Unit/Ml Inj, 100 UNIT IJ, INJ PER SLIDING SCALE 01/16/25 Furosemide (Furosemide) 40 Mg Tab, 1 TAB PO DAILY, #30 TAB 5 Refills 01/16/25 Home Meds Home medications reviewed. Current Medications Current Medications Medications (Trade) Dose Ordered Sig/Robe Route PRN Reason Start Time Stop Time Status Last Admin Furosemide (Lasix Tablet) 40 mg DAILY PO 01/18/25 10:00 01/18/25 10:03 Review of Systems Constitutional: No symptom reported Ears, Nose, & Throat: No symptom reported Eyes: No symptom reported Neurological: No symptoms reported Pulmonary/Respiratory: No symptoms reported Cardiovascular: No symptom reported Gastrointestinal: No symptom reported Genitourinary: No symptom reported Musculoskeletal: No symptom reported Skin: No symptom reported Psychiatric: No symptom reported Endocrine: No symptom reported Hematologic/Lymphatic: No symptom reported Vital Signs Vital Signs Date Time Temp Pulse Resp B/P (MAP) Pulse Ox O2 Delivery O2 Flow Rate FiO2 01/18/25 10:03 108/69 01/18/25 09:50 102 19 100 35 01/18/25 04:00 97.9 97.9 01/17/25 20:00 Mechanical Ventilator+ Physical Exam General Appearance: Cooperative. Well-developed. Well-nourished. No acute distress. Pulmonary/Respiratory: Tracheostomy to ventilator. Cardiovascular/Chest: Regular rate and rhythm. Peripheral Pulses: 2+ Radial (R). 2+ Radial (L). 2+ Pedal (R). 2+ Pedal (L) Abdominal Exam: Normal bowel sounds. Ankle Exam: 3+ pitting edema Lower extremities: 3+ pitting edema Neuro/Mental Status: A/OX4, coherent. Thoughts/Psych: Normal thought pattern. Appropriate mood and affect. Good judgment and insight. Appearance: No acute distress. Skin Exam: Normal inspection. Normal color. Warm and dry. Labs/Diagnostic Data Labs Test 01/18/25 06:30 01/18/25 04:38 01/17/25 19:52 01/17/25 04:40 Range/Units POC Glucose 145 H 70-106 mg/dl White Blood Count 7.5 # 4.4-10.8 10^3/uL Red Blood Count 4.71 4.5-5.90 10^6/uL Hemoglobin 14.1 13.5-17.5 g/dL Hematocrit 41.5 41.0-53.0 % Mean Corpuscular Volume 88.2 80.0-100.0 fL Mean Corpuscular Hemoglobin 30.0 28.0-32.0 pg Mean Corpuscular Hemoglobin Concent 34.0 32.0-36.0 g/dL Red Cell Distribution Width 15.2 H 11.8-14.3 % Platelet Count 241 140-450 10^3/uL Mean Platelet Volume 10.2 6.9-10.8 fL Neutrophils (%) (Auto) 62.3 37.0-80.0 % Lymphocytes (%) (Auto) 17.7 10.0-50.0 % Monocytes (%) (Auto) 18.1 H 0.0-12.0 % Eosinophils (%) (Auto) 1.2 0.0-7.0 % Basophils (%) (Auto) 0.7 0.0-2.0 % Neutrophils # (Auto) 4.7 1.6-8.6 10 ^3/uL Lymphocytes # (Auto) 1.3 0.4-5.4 10 ^3/uL Monocytes # (Auto) 1.4 H 0-1.3 10 ^3/uL Eosinophils # (Auto) 0.1 0-0.8 10 ^3/uL Basophils # (Auto) 0.1 0-0.2 10 ^3/uL Nucleated Red Blood Cells 0.0 % Sodium Level 138 136-145 mmol/L Potassium Level 3.6 3.5-5.1 mmol/L Chloride Level 105 98-107 mmol/L Carbon Dioxide Level 20 20-31 mmol/L Anion Gap 13 5-15 Blood Urea Nitrogen 12 9-23 mg/dL Creatinine 0.19 L 0.700-1.30 mg/dL Glomerular Filtration Rate Calc 151 >90 mL/min BUN/Creatinine Ratio 63.2 H 10.0-20.0 Serum Glucose 165 H 74-106 mg/dL Calcium Level 9.0 8.7-10.4 mg/dL Magnesium Level 2.2 1.6-2.6 mg/dL Total Bilirubin 0.7 0.2-1.0 mg/dL Aspartate Amino Transferase (AST) 14 13-40 U/L Alanine Aminotransferase (ALT) 27 7-40 U/L Alkaline Phosphatase 86 46-116 U/L Total Protein 6.3 5.7-8.2 g/dL Albumin 4.1 3.2-4.8 g/dL Test 01/16/25 14:30 01/16/25 13:21 01/16/25 09:22 01/16/25 05:09 Range/Units Blood Gas Specimen Type Venous Blood Gas Sample Site Other Blood Gas Patient Temperature 37.0 Arterial Blood Date Drawn [id number] [place] Test N/a Venous Blood pH 7.432 H 7.320-7.430 Venous Blood pCO2 at Patient Temp 21.0 L 38.0-54.0 mmHg Venous Blood pO2 at Patient Temp 51.5 H 23.0-48.0 mmHg Venous Blood HCO3 13.7 L 22.0-29.0 mmol/L Venous Blood Base Excess -8.0 L -2.0-3.0 mmol/L Blood Gas Set Respiration Rate 16.0 Blood Gas Modality Vent - ac FiO2 % 35.0 Blood Gas Tidal Volume 450.0 Blood Gas PEEP or CPAP 5.0 Blood Gas Comments Urine Color Yellow Yellow Urine Clarity Turbid H Clear Urine pH 6.0 5.0-9.0 Urine Specific [place] 1.020 1.001-1.035 Urine Protein 1+ H Negative Urine Ketones 3+ H Negative Urine Blood Negative Negative /uL Urine Nitrite Negative Negative Urine Bilirubin Negative Negative Urine Urobilinogen Normal Negative mg/dL Urine Leukocyte Esterase Negative Negative /uL Urine RBC 2 0 - 3 /hpf Urine Microscopic WBC 13 H 0-3 /HPF Urine Squamous Epithelial Cells Few <5 /hpf Urine Bacteria Few H None Seen /hpf Urine Hyaline Casts Few 0 - 2 /lpf Urine Mucus Few None Seen Urine Glucose Normal Normal mg/dL Lactic Acid Level 2.0 0.4-2.0 mmol/L Differential Total Cells Counted 100.0 100 Neutrophils % (Manual) 73 37.0-80.0 Band Neutrophils % (Manual) 0 Lymphocytes % (Manual) 9 L 10.0-50.0 Monocytes % (Manual) 18 H 0-12 Eosinophils % (Manual) 0 0-7 Basophils % (Manual) 0 0.0-2.0 Metamyelocytes % (manual) 0 Myelocytes % (Manual) 0 Promyelocytes % (Manual) 0 Blast Cells % (Manual) 0 Reactive Lymphocytes 0 Platelet Estimate Adequate Test 01/15/25 15:21 Range/Units B-Type Natriuretic Peptide 44.98 0-100 pg/mL Microbiology Date/Time Source Procedure Growth Status 01/17/25 15:25 Sputum Gram Stain Pending Resulted 01/17/25 15:25 Sputum Respiratory Culture - Preliminary Resulted 01/17/25 13:03 Urine - [place] Urine Culture - Preliminary Resulted 01/16/25 00:35 Nose MRSA Screen - Final Complete 01/15/25 21:06 Blood Blood Culture - Final Staphylococcus schleiferi Complete Assessment Hypertensive emergency Sinus bradycardia, resolved Sepsis Bacteremia Dyslipidemia Amyotrophic lateral sclerosis (ALS) Acute hypoxic respiratory failure Tracheostomy Type 2 diabetes mellitus Chronic pain Bed-bound Plan/Recommendation We will continue with the following plan/recommendations (Dr. Crisostomo): Case was discussed with . A transthoracic echocardiogram reveals an EF of 60%, with a small pericardial effusion that is not hemodynamically significant. Cardiology was initially consulted for bradycardia. At the time of assessment, patient is in a normal sinus rhythm and off of vasopressors. One episode of transient bradycardia seen on cardiac strips that was printed from emergency room. Since the patient has been in [facility], no episodes of bradycardia seen on dishcloth folder. Patient not a candidate for pacemaker at this time. There is no further inpatient cardiac workup indicated at this time. Cardiology will sign off. Please reconsult if needed. Thank you for allowing us to care for this patient. Please call with any questions or concerns. Critical care time spent: 44 minutes This medical document was created using an electronic medical record system with voice recognition software and computerized dictation system. Although this document has been carefully reviewed, there might still be some phonetic and typographical errors. Occasional wrong-word or ``sound-alike substitutions may have occurred due to the inherent limitations of voice recognition software. These areas are purely typographical due to imperfections of the software programs and do not reflect any compromise in the patient's medical care. Please read the chart carefully and recognize, using context, where these substitutions have occurred. Plan discussed with: Patient, Spouse NYHA Physical activity limitations: NA Date of Service: Jan 18, 2025 Billing Provider: ANTWAN MCLAUGHLIN Cardiology Common Codes: 64959-[id number] INP/OBS CARE (High) Cardiology Consultation Codes: 32926-[id number] CONSULT <45MIN ANTWAN MCLAUGHLIN Jan 18, 2025 12:53
[2025-01-18] MEDS: POTASSIUM CHLORIDE 40 MEQ, LIDOCAINE 1% (LOCAL ANESTH.) 4 ML in SODIUM CHL 0.9% 250 ML IV ONE (14:13)
--- NOTE | 2025-01-18 15:04 | DVHPN2 ---
Progress Note - Dictate Date Seen: Jan 18, 2025 Medical Necessity Reason Pt with a Central, PICC or Fol: No Subjective Clinically stable. On IV Zyvox for bacteremia. No signs of sepsis. vital signs Vital Sign Date Time Temp Pulse Resp B/P (MAP) Pulse Ox O2 Delivery O2 Flow Rate FiO2 01/18/25 13:00 102 17 115/64 (81) 100 01/18/25 12:00 98.4 98.4 01/18/25 10:00 Mechanical Ventilator 01/18/25 09:50 35 Total Intake and Output 01/17/25 01/17/25 01/18/25 15:00 23:00 07:00 Intake Total 555.5 ml 298.5 ml 1320 ml Output Total 625 ml 1050 ml Balance 555.5 ml -326.5 ml 270 ml medications Current Medications Medications Dose Ordered Sig/Robe Route Start Time Stop Time Status Last Admin Dose Admin Ipratropium [place] 0.5 mg Q4HR NEB 01/15/25 22:00 01/18/25 13:56 0.5 MG Albuterol 2.5 mg Q6HPRN PRN NEB 01/15/25 20:30 01/18/25 13:56 2.5 MG Enoxaparin Sodium 40 mg DAILY SC 01/16/25 10:00 01/18/25 10:02 40 MG Pantoprazole Sodium 40 mg DAILY IV 01/16/25 10:00 01/18/25 10:01 40 MG Acetaminophen 650 mg Q6HPRN PRN PO 01/15/25 20:30 Acetaminophen/ Hydrocodone Bitart 1 tab Q6HPRN PRN PO 01/15/25 20:30 Norepinephrine Bitartrate 250 ml @ 3.75 mls/hr Q24H IV 01/16/25 00:00 Diagnostic Test (Pha) 1 strip ACHS 01/16/25 07:00 01/18/25 12:30 1 STRIP Insulin Human Regular ACHS SC 01/16/25 07:00 01/18/25 13:11 3 UNITS Dextrose 50 ml UD PRN IV 01/16/25 06:45 Ceftriaxone Sodium 50 ml @ 100 mls/hr DAILY@09 IV 01/17/25 09:00 01/18/25 10:01 100 MLS/HR Purified Water 400 ml Q6HR GT 01/16/25 18:00 01/18/25 12:00 400 ML Linezolid 300 ml @ 150 mls/hr Q12HR IV 01/17/25 10:00 01/18/25 10:02 150 MLS/HR Enteral Nutritional Formula 110 ml QID PO 01/17/25 12:00 01/18/25 12:29 110 ML Furosemide 40 mg DAILY PO 01/18/25 10:00 01/18/25 10:03 40 MG objective Comfortable movement without distress. Family at bedside. Heart regular rate and rhythm S1 and S2. Lungs without rales wheezes. Abdomen obese positive bowel sounds. Extremities positive edema. laboratory and microbiology Laboratory Tests 01/18/25 04:38 Test 01/18/25 04:38 Range/Units Serum Glucose 165 H 74-106 mg/dL Assessment/Plan Echocardiogram normal ejection fraction. We will repeat blood cultures x2 today to see if the infection is cleared up. Meantime continue IV Zyvox. Otherwise continue current tube feeds rest of supportive care and treatment as he is on. Replace electrolytes as needed. Further clinical management per clinical course and recommendations from Infectious Disease. Discussed with the patient regarding care plan and once blood cultures are negative he could probably be discharged home on oral antibiotic for ID recommendations. Problems(with codes): (1) Gram-positive cocci bacteremia (2) Presence of externally removable percutaneous endoscopic gastrostomy (PEG) tube (3) ALS (amyotrophic lateral sclerosis) (4) Hypertensive crisis (5) Bradycardia (6) Tracheostomy status Dietary Evaluation Review Comments: 1) Advance to [facility] 60gm + cardiac diet as medically feasible 2) If pt cannot tolerate PO, consider TF Glucerna 1.2Cal @ 70ml/hr (goal). 3) Monitor wt trend, lab values, skin integrity Expected Outcomes/Goals: To meet >75% estimated needs Fu 2-3 days Plan discussed with: Patient, Spouse DESEAN BERMUDEZ MD Jan 18, 2025 15:04
--- NOTE | 2025-01-18 20:30 | DVHINCON2 ---
Date of service: Jan 17, 2025 Family History: Chronic obstructive pulmonary disease G8 SISTER Diabetes mellitus G8 MOTHER G8 FATHER Hypertension G8 FATHER Allergies: Coded Allergies: Empagliflozin (Verified Allergy, Unknown, 01/15/25) Piperacillin (Verified Adverse Reaction, Unknown, 01/16/25) POSSIBLE REACTION: HYPOTENSION AND DIAPHORETIC Home Meds Reported Medications Aspirin (ASPIRIN 81) 81 Mg Tab, 81 MG GT DAILY, TAB 01/16/25 Pseudoephedrine-Guaifenesin (Mucinex D) 1 Tab Tab, 1 TAB PO Q8HPRN, #20 TAB 01/16/25 Atorvastatin Calcium (ATORVASTATIN CALCIUM) 10 Mg Tab, 1 TAB PO DAILY, #30 TAB 5 Refills 01/16/25 Ipratropium [place] Hfa (Atrovent Hfa) 17 Mcg Aer, 2 PUFF INH QID, #12.9 GRAMS 3 Refills 01/16/25 Multiple Vitamin (Multivitamins) Tab, 1 TAB PO DAILY, #90 TAB 3 Refills 01/16/25 Lisinopril (Lisinopril) 20 Mg Tab, 1 TAB PO DAILY, #30 TAB 5 Refills 01/16/25 Polyethylene Glycol (Miralax) 17 Gm/Scoop Pow, 17 GM GT PRN PRN for FOR CONSTIPATION, POW 01/16/25 Acetaminophen (Acetaminophen) 325 Mg Tab, 500 MG PO Q6HR PRN for MILD PAIN (1-3 PAIN SCALE) for 30 Days, MG 0 Refills 01/16/25 Cholecalciferol (VITAMIN D3) 2,000 Unit Tab, 2500 UNIT GT DAILY, TAB 01/16/25 Insulin Glargine-Yfgn (Insulin Glargine) 100 Unit/Ml Inj, 28 UNIT SC HS, INJ 01/16/25 Ascorbic Acid (VITAMIN C TABLET) 500 Mg Tb, 1000 MG GT BID, TAB 01/16/25 Furosemide (Furosemide) 20 Mg Tab, 1 TAB PO DAILY PRN for BREAKTHROUGH PAIN, #90 TAB 1 Refill PRN SWELLING 01/16/25 Insulin Aspart (Novolog) 100 Unit/Ml Inj, 100 UNIT IJ, INJ PER SLIDING SCALE 01/16/25 Furosemide (Furosemide) 40 Mg Tab, 1 TAB PO DAILY, #30 TAB 5 Refills 01/16/25 Current Medications Current Medications Medications (Trade) Dose Ordered Sig/Robe Route PRN Reason Start Time Stop Time Status Last Admin Furosemide (Lasix Tablet) 40 mg DAILY PO 01/18/25 10:00 01/18/25 10:03 Vital Signs Vital Signs Date Time Temp Pulse Resp B/P (MAP) Pulse Ox O2 Delivery O2 Flow Rate FiO2 01/18/25 18:48 96 36 119/68 (85) 100 35 01/18/25 16:00 98.9 98.9 01/18/25 10:00 Mechanical Ventilator Labs/Diagnostic Data Labs Test 01/18/25 18:33 01/18/25 04:38 01/17/25 19:52 01/17/25 04:40 Range/Units POC Glucose 155 H 70-106 mg/dl White Blood Count 7.5 # 4.4-10.8 10^3/uL Red Blood Count 4.71 4.5-5.90 10^6/uL Hemoglobin 14.1 13.5-17.5 g/dL Hematocrit 41.5 41.0-53.0 % Mean Corpuscular Volume 88.2 80.0-100.0 fL Mean Corpuscular Hemoglobin 30.0 28.0-32.0 pg Mean Corpuscular Hemoglobin Concent 34.0 32.0-36.0 g/dL Red Cell Distribution Width 15.2 H 11.8-14.3 % Platelet Count 241 140-450 10^3/uL Mean Platelet Volume 10.2 6.9-10.8 fL Neutrophils (%) (Auto) 62.3 37.0-80.0 % Lymphocytes (%) (Auto) 17.7 10.0-50.0 % Monocytes (%) (Auto) 18.1 H 0.0-12.0 % Eosinophils (%) (Auto) 1.2 0.0-7.0 % Basophils (%) (Auto) 0.7 0.0-2.0 % Neutrophils # (Auto) 4.7 1.6-8.6 10 ^3/uL Lymphocytes # (Auto) 1.3 0.4-5.4 10 ^3/uL Monocytes # (Auto) 1.4 H 0-1.3 10 ^3/uL Eosinophils # (Auto) 0.1 0-0.8 10 ^3/uL Basophils # (Auto) 0.1 0-0.2 10 ^3/uL Nucleated Red Blood Cells 0.0 % Sodium Level 138 136-145 mmol/L Potassium Level 3.6 3.5-5.1 mmol/L Chloride Level 105 98-107 mmol/L Carbon Dioxide Level 20 20-31 mmol/L Anion Gap 13 5-15 Blood Urea Nitrogen 12 9-23 mg/dL Creatinine 0.19 L 0.700-1.30 mg/dL Glomerular Filtration Rate Calc 151 >90 mL/min BUN/Creatinine Ratio 63.2 H 10.0-20.0 Serum Glucose 165 H 74-106 mg/dL Calcium Level 9.0 8.7-10.4 mg/dL Magnesium Level 2.2 1.6-2.6 mg/dL Total Bilirubin 0.7 0.2-1.0 mg/dL Aspartate Amino Transferase (AST) 14 13-40 U/L Alanine Aminotransferase (ALT) 27 7-40 U/L Alkaline Phosphatase 86 46-116 U/L Total Protein 6.3 5.7-8.2 g/dL Albumin 4.1 3.2-4.8 g/dL Test 01/16/25 14:30 01/16/25 13:21 01/16/25 09:22 01/16/25 05:09 Range/Units Blood Gas Specimen Type Venous Blood Gas Sample Site Other Blood Gas Patient Temperature 37.0 Arterial Blood Date Drawn [id number] [place] Test N/a Venous Blood pH 7.432 H 7.320-7.430 Venous Blood pCO2 at Patient Temp 21.0 L 38.0-54.0 mmHg Venous Blood pO2 at Patient Temp 51.5 H 23.0-48.0 mmHg Venous Blood HCO3 13.7 L 22.0-29.0 mmol/L Venous Blood Base Excess -8.0 L -2.0-3.0 mmol/L Blood Gas Set Respiration Rate 16.0 Blood Gas Modality Vent - ac FiO2 % 35.0 Blood Gas Tidal Volume 450.0 Blood Gas PEEP or CPAP 5.0 Blood Gas Comments Urine Color Yellow Yellow Urine Clarity Turbid H Clear Urine pH 6.0 5.0-9.0 Urine Specific [place] 1.020 1.001-1.035 Urine Protein 1+ H Negative Urine Ketones 3+ H Negative Urine Blood Negative Negative /uL Urine Nitrite Negative Negative Urine Bilirubin Negative Negative Urine Urobilinogen Normal Negative mg/dL Urine Leukocyte Esterase Negative Negative /uL Urine RBC 2 0 - 3 /hpf Urine Microscopic WBC 13 H 0-3 /HPF Urine Squamous Epithelial Cells Few <5 /hpf Urine Bacteria Few H None Seen /hpf Urine Hyaline Casts Few 0 - 2 /lpf Urine Mucus Few None Seen Urine Glucose Normal Normal mg/dL Lactic Acid Level 2.0 0.4-2.0 mmol/L Differential Total Cells Counted 100.0 100 Neutrophils % (Manual) 73 37.0-80.0 Band Neutrophils % (Manual) 0 Lymphocytes % (Manual) 9 L 10.0-50.0 Monocytes % (Manual) 18 H 0-12 Eosinophils % (Manual) 0 0-7 Basophils % (Manual) 0 0.0-2.0 Metamyelocytes % (manual) 0 Myelocytes % (Manual) 0 Promyelocytes % (Manual) 0 Blast Cells % (Manual) 0 Reactive Lymphocytes 0 Platelet Estimate Adequate Test 01/15/25 15:21 Range/Units B-Type Natriuretic Peptide 44.98 0-100 pg/mL Microbiology Date/Time Source Procedure Growth Status 01/17/25 15:25 Sputum Gram Stain - Final Resulted 01/17/25 15:25 Sputum Respiratory Culture - Preliminary Resulted 01/17/25 13:03 Urine - [place] Urine Culture - Preliminary Resulted 01/16/25 00:35 Nose MRSA Screen - Final Complete 01/15/25 21:06 Blood Blood Culture - Final Staphylococcus schleiferi Complete Problems(with codes): (1) Presence of externally removable percutaneous endoscopic gastrostomy (PEG) tube (2) Gram-positive cocci bacteremia (3) Septic shock (4) ALS (amyotrophic lateral sclerosis) Plan/Recommendation ASSESSMENT AND PLAN: ID Problem List: - Septic shock - Staphylococcal bacteremia - Gram negative mauro pneumonia - ALS (amyotrophic lateral sclerosis) - Tracheostomy, on mechanical ventilation - Acute hypoxic respiratory failure - Hypertension - Hyperlipidemia - G-tube - Altered mental status Assessment: 64 y.o. male with a complex history including ALS, chronic tracheostomy with mechanical ventilation, hypertension, hyperlipidemia, and G-tube dependence, who presented with alteration in mental status and persistent hypertension, found to have leukocytosis (WBC 17.7), lactic acidosis (lactate 2.8), and was admitted for septic shock, bradycardia, and acute respiratory failure. Admitted 01/15. Developed symptomatic bradycardia and persistent hypertension, requiring brief pressor support. He has chronic bilateral lower extremity edema without drainage, open wounds, or sacral ulcers. Sputum culture positive for gram negative rods and blood cultures positive for gram positive cocci (clusters and pairs) in both aerobic and anaerobic bottles from separate draws. Chest X- ray demonstrates cardiomegaly with mild pulmonary congestion. Doppler ultrasound of bilateral lower extremities negative for DVT. Echocardiogram on 01/16 shows EF 60% and small pericardial effusion. Patient started empirically on antibiotics, later narrowed to ceftriaxone and linezolid after identification of blood and sputum culture results. Improvement in mentation, hypertension, and tachycardia observed following institution of antibiotics. Gluofed (vasopressor) required only briefly. Continues to be on mechanical ventilation (FiO2 35%), ventilator settings stable. Blood cultures show Staphylococcus species bacteremia; unclear if contaminantrepeat cultures pending. Sputum cultures with gram negative rods, sensitivities pending. Will follow-up on identification prior to potential de- escalation to oral antibiotics. Current antimicrobial regimen appears appropriate at this time. Plan: - Continue ceftriaxone and linezolid - Follow-up on blood cultures; if negative, consider 7 day course for bacteremia - Monitor sensitivities on sputum culture, de-escalate to oral agents if possible - Cardiology to follow for tachycardia management and workup - Pulmonology to continue ventilatory management in setting of ALS and respiratory failure - Consider diuresis if persistent pulmonary congestion/hypoxia - Pressor support not currently required; continue to monitor MAPs - Monitor blood glucose given recent elevations (up to 204) - Re-evaluate antibiotic regimen and length of therapy as new laboratory data becomes available Authorized and Performed by: ana baez Total critical care time: Approximately 76 minutes Due to a high probability of clinically significant, life threatening det erioration, the patient required my highest level of preparedness to intervene emergently and I personally spent this critical care time directly and personally managing the patient. This critical care time included obtaining a history; examining the patient; pulse oximetry; ordering and review of studies; arranging urgent treatment with development of a management plan; evaluation of patient's response to treatment; frequent reassessment; and, discussions with other providers. This critical care time was performed to assess and manage the high probability of imminent, life-threatening deterioration that could result in multi-organ failure. It was exclusive of separately billable procedures and treating other patients and teaching time. Isolation Precautions: Standard Assessment and plan were discussed with the patient/care team as outlined above. Plan subject to change based on new diagnostics and clinical course. Updates may be added as addenda as appropriate. Thank you for the consult. ID will continue to follow. Please contact Infectious Disease for any concerns. Ana Baez M.D. [facility] Ph: ? Teams text: [email or web address] History: The patients chart and medications were reviewed in detail and the patient was seen and examined. History obtained from: patient and chart review 64 y.o. male with history of ALS (on chronic tracheostomy and mechanical ventilation), hypertension, hyperlipidemia, and G-tube dependence admitted with alteration of mental status, septic shock, and acute hypoxic respiratory failure. Noted on admission: - Symptomatic bradycardia - Persistent hypertension; required pressor support; MAPs subsequently improved - Labs: WBC 17.7, lactate 2.8, BNP 4498, creatinine 0.21 - Chronic bilateral lower extremity edema, no wounds or ulcers Review of Systems: A complete 10 system review of systems was completed and negative except as noted in the HPI or here. ROS: - CONSTITUTIONAL: Denies weight loss, fever, and chills. - HEENT: Denies changes in vision and hearing. - RESPIRATORY: Denies shortness of breath and cough (unable to answer, ventilated; pulmonary congestion noted on imaging). - CV: Denies chest pain and palpitations (tachycardia, hypertension present). - GI: Denies nausea, vomiting, or diarrhea. - : Denies dysuria and urinary frequency. - MSK: Denies myalgia or joint pain (chronic edema present). - SKIN: Denies rash or pruritus; no open wounds. - NEUROLOGICAL: Denies new focal deficits (history of ALS and AMS). - PSYCHIATRIC: Denies mood changes, depression, or anxiety. Past Medical History: ALS (amyotrophic lateral sclerosis) Tracheostomy (chronic, on mechanical ventilation) Hypertension Hyperlipidemia G-tube dependence History of altered mental status Past Surgical History: Not provided in transcript. Home Medications: Not provided in transcript. Allergies: Not provided in transcript. Family History: Not provided in transcript. Social History: Not provided in transcript. Objective: Vital Signs on Arrival: Temp: 98.1 F BP: 117/64 mmHg Pulse: 88 bpm Resp: 14/min SpO2: 100% on mechanical ventilation (FiO2 35%) Most Recent Vital Signs: Not provided in transcript. Admission Weight/BMI: Not provided in transcript. Physical Exam: General: NAD Neck: Supple. No masses. HEENT: PERRL. Normal lids and conjunctiva. Moist mucous membranes. Oropharynx without lesions, exudates or excessive erythema. Normal appearance of the external aspects of the nose and ears. Heart: Regular rhythm, normal rate. No murmur. Chronic bilateral lower extremity edema present. Lungs: Normal respiratory effort (on ventilator). Clear to auscultation bilaterally. No wheezes. No crackles. Abdomen: Soft. Non-tender. Non-distended. No masses or abdominal hernia. Msk: No digital cyanosis. Normal strength and tone in all 4 limbs (ALS with baseline weakness). Skin: Warm and dry, no rashes. No drainage, open wounds, or sacral ulcers. Neuro: Alert. No facial droop or slurred speech. Extra-ocular movements intact. Sensation intact to soft touch in all 4 limbs. Psych: Appropriate mood. Full affect. Oriented to person, place, time, and situation. Lines: Not provided in transcript. Diagnostic Studies: Available diagnostic studies were reviewed personally. Significant relevant results are outlined below or addressed in the Assessment and Plan above. Pertinent Imaging and Labs: - Chest X-ray: Cardiomegaly, mild pulmonary congestion. - Bilateral LE Doppler ultrasound: No DVT in right or left popliteal/femoral veins. - Echocardiogram (01/16): EF 60%, small pericardial effusion, technically limited/difficult windows. - Blood cultures: Positive for gram positive cocci in clusters and pairs (both aerobic and anaerobic bottles from separate sites, 01/15). - Sputum cultures: Gram negative rods; identification and susceptibilities pe nding. - Urine culture (01/16): No growth, preliminary. - Lactic acid: 2.8 WBC: 17.7 - Hemoglobin: 16.8 - Platelets: 249 BNP: 4498 - Creatinine: 0.21 - Glucose: up to 204 noted. Plan discussed with: Patient ANA BAEZ MD Jan 18, 2025 20:30
--- NOTE | 2025-01-18 20:31 | DVHPN2 ---
Consult Progress Note Objective vital signs Vital Sign Date Time Temp Pulse Resp B/P (MAP) Pulse Ox O2 Delivery O2 Flow Rate FiO2 01/18/25 18:48 96 36 119/68 (85) 100 35 01/18/25 16:00 98.9 98.9 01/18/25 10:00 Mechanical Ventilator Total Intake and Output 01/17/25 01/17/25 01/18/25 15:00 23:00 07:00 Intake Total 555.5 ml 298.5 ml 1320 ml Output Total 625 ml 1050 ml Balance 555.5 ml -326.5 ml 270 ml medications Current Medications Medications Dose Ordered Sig/Robe Route Start Time Stop Time Status Last Admin Dose Admin Ipratropium [place] 0.5 mg Q4HR NEB 01/15/25 22:00 01/18/25 18:48 Albuterol 2.5 mg Q6HPRN PRN NEB 01/15/25 20:30 01/18/25 13:56 Enoxaparin Sodium 40 mg DAILY SC 01/16/25 10:00 01/18/25 10:02 Pantoprazole Sodium 40 mg DAILY IV 01/16/25 10:00 01/18/25 10:01 Acetaminophen 650 mg Q6HPRN PRN PO 01/15/25 20:30 Acetaminophen/ Hydrocodone Bitart 1 tab Q6HPRN PRN PO 01/15/25 20:30 Norepinephrine Bitartrate 250 ml @ 3.75 mls/hr Q24H IV 01/16/25 00:00 Diagnostic Test (Pha) 1 strip ACHS 01/16/25 07:00 01/18/25 17:00 Insulin Human Regular ACHS SC 01/16/25 07:00 01/18/25 18:50 Dextrose 50 ml UD PRN IV 01/16/25 06:45 Ceftriaxone Sodium 50 ml @ 100 mls/hr DAILY@09 IV 01/17/25 09:00 01/18/25 10:01 Purified Water 400 ml Q6HR GT 01/16/25 18:00 01/18/25 17:30 Linezolid 300 ml @ 150 mls/hr Q12HR IV 01/17/25 10:00 01/18/25 10:02 Enteral Nutritional Formula 110 ml QID PO 01/17/25 12:00 01/18/25 17:31 Furosemide 40 mg DAILY PO 01/18/25 10:00 01/18/25 10:03 laboratory and microbiology Laboratory Tests 01/18/25 04:38 Test 01/18/25 04:38 Range/Units Serum Glucose 165 H 74-106 mg/dL Dietary Evaluation Review Comments: 1) Advance to [facility] 60gm + cardiac diet as medically feasible 2) If pt cannot tolerate PO, consider TF Glucerna 1.2Cal @ 70ml/hr (goal). 3) Monitor wt trend, lab values, skin integrity Expected Outcomes/Goals: To meet >75% estimated needs Fu 2-3 days LEISA PEREZ MD Jan 18, 2025 20:31
[2025-01-18] MEDS: ACETAMINOPHEN 325 MG TAB PO PRN (21:01)
--- NOTE | 2025-01-18 22:03 | DVHPN2 ---
Progress Note - Dictate Date Seen: Jan 18, 2025 Medical Necessity Reason Pt with a Central, PICC or Fol: No Subjective Patient seen and examined at bedside. On mechanical ventilator via trach Overnight events reviewed. vital signs Vital Sign Date Time Temp Pulse Resp B/P (MAP) Pulse Ox O2 Delivery O2 Flow Rate FiO2 01/18/25 20:10 108 26 119/60 (79) 100 35 01/18/25 16:00 98.9 98.9 01/18/25 10:00 Mechanical Ventilator Total Intake and Output 01/17/25 01/17/25 01/18/25 15:00 23:00 07:00 Intake Total 555.5 ml 298.5 ml 1320 ml Output Total 625 ml 1050 ml Balance 555.5 ml -326.5 ml 270 ml medications Current Medications Medications Dose Ordered Sig/Robe Route Start Time Stop Time Status Last Admin Dose Admin Ipratropium [place] 0.5 mg Q4HR NEB 01/15/25 22:00 01/18/25 18:48 0.5 MG Albuterol 2.5 mg Q6HPRN PRN NEB 01/15/25 20:30 01/18/25 13:56 2.5 MG Enoxaparin Sodium 40 mg DAILY SC 01/16/25 10:00 01/18/25 10:02 40 MG Pantoprazole Sodium 40 mg DAILY IV 01/16/25 10:00 01/18/25 10:01 40 MG Acetaminophen 650 mg Q6HPRN PRN PO 01/15/25 20:30 01/18/25 21:01 650 MG Acetaminophen/ Hydrocodone Bitart 1 tab Q6HPRN PRN PO 01/15/25 20:30 Norepinephrine Bitartrate 250 ml @ 3.75 mls/hr Q24H IV 01/16/25 00:00 Diagnostic Test (Pha) 1 strip ACHS 01/16/25 07:00 01/18/25 17:00 1 STRIP Insulin Human Regular ACHS SC 01/16/25 07:00 01/18/25 18:50 2 UNITS Dextrose 50 ml UD PRN IV 01/16/25 06:45 Ceftriaxone Sodium 50 ml @ 100 mls/hr DAILY@09 IV 01/17/25 09:00 01/18/25 10:01 100 MLS/HR Purified Water 400 ml Q6HR GT 01/16/25 18:00 01/18/25 17:30 400 ML Linezolid 300 ml @ 150 mls/hr Q12HR IV 01/17/25 10:00 01/18/25 21:01 150 MLS/HR Enteral Nutritional Formula 110 ml QID PO 01/17/25 12:00 01/18/25 21:02 110 ML Furosemide 40 mg DAILY PO 01/18/25 10:00 01/18/25 10:03 40 MG objective Gen.: Patient lying in bed in medical ICU. On mechanical ventilator via trach. Head: Normocephalic, atraumatic. Eyes: PERRLA. Ears: Normal external anatomy. Throat: Endotracheal tube and orogastric tube in place. Neck: Trach in place. Chest: Transmitted breath sounds bilaterally. Decreased air entry bilaterally. No wheezing. Bibasilar crackles. Cardiovascular: Positive S1, positive S2. Regular rate and rhythm. Abdomen: Positive bowel sounds in all 4 quadrants. Soft, nontender, nondistended. : Agrawal in place. Normal external genitalia. Rectal: Deferred. Skin: Warm, dry. Intact. Extremities: 2+ radial pulses bilaterally. No lower extremity edema. Neuro: Off sedation laboratory and microbiology Laboratory Tests 01/18/25 04:38 Test 01/18/25 04:38 Range/Units Serum Glucose 165 H 74-106 mg/dL Assessment/Plan Impression: Acute hypoxic respiratory failure On mechanical ventilator S/p tracheostomy Septic shock Symptomatic bradycardia Metabolic encephalopathy Amyotrophic lateral sclerosis Events: Remains on vent via trach Vent support PRN OK to come off ventilator for meals. Note, pt had a reaction to Zosyn on 01/16/25 and required pressors for 1 hour, tapered off. Remains off pressors for 2 days. Monitor hemodynamics. Continue antibiotics Follow up culture results. MRSA screen negative. Continue bronchodilators Continue trach care per RT. Ultrasound venous Doppler of bilateral lower extremities was negative for DVT. Lactic acid improved. Free water for hydration d/t metabolic acidosis Monitor renal function Monitor electrolytes. Supplement as necessary. Monitor ins and outs. Chest x-ray was notable for pulmonary vascular congestion. Labs and imaging reviewed. Rest of plan as noted below. Plan: On mechanical ventilator via tracheostomy. Vent settings: AC mode with RR 16, VT 450, Peep +5, with an Fi02 set at 35%. Patient has a 7.0 trach [place] secured with trach ties. Cuff pressure set at [id number]. Titrate FIO2 to keep O2 saturation above 90%. Head of bed elevation Aspiration precautions Head CT showed no acute intracranial abnormalities CXR reviewed, notable for cardiomegaly with mild pulmonary congestion Trach care per RT Bronchodilators. Antibiotics. Pressors as necessary for hemodynamic support Titrate to keep mean arterial pressure greater than 65 mmHg. Follow up Cardiology recommendations Monitor renal function Monitor electrolytes. Supplement as necessary. Monitor ins and outs. Maintain euvolemia. Monitor CBC, BMP, lactate GI prophylaxis. DVT prophylaxis. Prognosis: Poor given patient's multiple co-morbidities. Rest of plan per hospitalist and other consultants. Thank you, LEONEL Franklin, for allowing me to participate in this patient's care. Further recommendations will depend on the patient's clinical course. Please do not hesitate to contact me if you have any questions or concerns. This medical document was created using an electronic medical record system with [employer] dictation system. Although these documentations are being carefully reviewed, there may still be some phonetic and typographical changes. The errors are purely typographical, due to imperfection on the software program, and do not reflect any compromise in the patient's medical care. Dietary Evaluation Review Comments: 1) [facility] cardiac diet as medically feasible 2) If pt cannot tolerate PO, consider TF Glucerna 1.2Cal @ 70ml/hr (goal). 3) Monitor wt trend, lab values, skin integrity Expected Outcomes/Goals: To meet >75% estimated needs Fu 2-3 days Plan discussed with: Patient, Other (KATJA Barksdale) XAVIER BECKER MD Jan 18, 2025 22:03
[2025-01-19] VITALS (37 sets, daily range): BP systolic 105–126; BP diastolic 52–78; PULSE 80–105; RESP 8–39; TEMP 98.4–99; O2SAT 99–100
[2025-01-19 09:17] LABS: Potassium 3.9 mmol/L (3.5-5.1); Sodium 141 mmol/L (136-145)
[2025-01-19 09:18] LABS: Anion Gap 13 (5-15); Carbon Dioxide 20 mmol/L (20-31)
[2025-01-19 09:19] LABS: Calcium 9.3 mg/dL (8.7-10.4); Chloride 108 mmol/L (98-107)
[2025-01-19 09:24] LABS: BUN/Creatinine Ratio 61.1 (10.0-20.0); Blood Urea Nitrogen 11 mg/dL (9-23)
[2025-01-19 09:25] LABS: Glucose 144 mg/dL (74-106)
--- NOTE | 2025-01-19 18:07 | DVHPN2 ---
Subjective Overnight events noted patient's repeat blood cultures are pending. Reviewed: Care Plan Changes from previous H/P or p: No Changes Objective Vitals Vital Signs Date Time Temp Pulse Resp B/P (MAP) Pulse Ox O2 Delivery O2 Flow Rate FiO2 01/19/25 16:22 103 34 100 35 01/19/25 12:00 98.4 98.4 01/19/25 10:00 Mechanical Ventilator Intake/Output Intake and Output 01/19/25 07:00 Intake Total 2914.0 ml Output Total 1555 ml Balance 1359.0 ml Intake Oral 60 ml IV Total 924.0 ml Tube Feeding 330 ml Other 1600 ml Output Urine Total 1555 ml # Bowel Movements 1 Exam HEENT pupils are reactive Neck status post tracheostomy currently on ventilator support CV is S1-S2 regular rate and rhythm Respiratory bilateral diminished breath sounds bases GI positive bowel sound Extremity no edema 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 Medications Current Medications Medications Dose Ordered Sig/Robe Route Start Time Stop Time Status Last Admin Dose Admin Ipratropium [place] 0.5 mg Q4HR NEB 01/15/25 22:00 01/19/25 14:45 0.5 MG Albuterol 2.5 mg Q6HPRN PRN NEB 01/15/25 20:30 01/19/25 05:33 2.5 MG Enoxaparin Sodium 40 mg DAILY SC 01/16/25 10:00 01/19/25 09:41 40 MG Pantoprazole Sodium 40 mg DAILY IV 01/16/25 10:00 01/19/25 09:40 40 MG Acetaminophen 650 mg Q6HPRN PRN PO 01/15/25 20:30 01/18/25 21:01 650 MG Acetaminophen/ Hydrocodone Bitart 1 tab Q6HPRN PRN PO 01/15/25 20:30 Norepinephrine Bitartrate 250 ml @ 3.75 mls/hr Q24H IV 01/16/25 00:00 Diagnostic Test (Pha) 1 strip ACHS 01/16/25 07:00 01/19/25 17:00 1 STRIP Insulin Human Regular ACHS SC 01/16/25 07:00 01/19/25 17:00 3 UNITS Dextrose 50 ml UD PRN IV 01/16/25 06:45 Ceftriaxone Sodium 50 ml @ 100 mls/hr DAILY@09 IV 01/17/25 09:00 01/19/25 09:38 100 MLS/HR Purified Water 400 ml Q6HR GT 01/16/25 18:00 01/19/25 11:47 400 ML Linezolid 300 ml @ 150 mls/hr Q12HR IV 01/17/25 10:00 01/19/25 09:41 150 MLS/HR Enteral Nutritional Formula 110 ml QID PO 01/17/25 12:00 01/19/25 12:00 110 ML Furosemide 40 mg DAILY PO 01/18/25 10:00 01/19/25 09:41 40 MG Laboratory Results Laboratory Tests 01/18/25 04:38 01/19/25 08:55 Chemistry Test 01/19/25 08:55 Calcium Level 9.3 mg/dL (8.7-10.4) Urinalysis Test 01/16/25 13:21 Urine Color Yellow (Yellow) Urine Clarity Turbid (Clear) H Urine pH 6.0 (5.0-9.0) Urine Specific [place] 1.020 (1.001-1.035) Urine Protein 1+ (Negative) H Urine Ketones 3+ (Negative) H Urine Blood Negative /uL (Negative) Urine Nitrite Negative (Negative) Urine Bilirubin Negative (Negative) Urine Urobilinogen Normal mg/dL (Negative) Urine Leukocyte Esterase Negative /uL (Negative) Urine RBC 2 /hpf (0 - 3) Urine Microscopic WBC 13 /HPF (0-3) H Urine Squamous Epithelial Cells Few /hpf (<5) Urine Bacteria Few /hpf (None Seen) H Urine Hyaline Casts Few /lpf (0 - 2) Urine Mucus Few (None Seen) Urine Glucose Normal mg/dL (Normal) Microbiology Microbiology Date/Time Source Procedure Growth Status 01/18/25 15:29 Blood Blood Culture - Preliminary NO GROWTH AFTER 24 HOURS OF INCUBATION. Resulted 01/17/25 15:25 Sputum Gram Stain - Final Complete 01/17/25 15:25 Respiratory Culture - Final Pseudomonas aeruginosa Providencia staurtii Complete 01/17/25 13:03 Urine - [place] Urine Culture - Final Complete 01/16/25 00:35 Nose MRSA Screen - Final Complete Assessment/Plan Assessment/Plan 64-year-old male with a known history of ALS, chronic tracheostomy currently on mechanical ventilation, status post G-tube placement, hypertension, dyslipidemia initially presented to hospital with altered mental status and hypotension found to have 1. Septic shock secondary to Gram-positive bacteremia 2. Gram-positive bacteremia repeat blood cultures are pending 3. ALS 4. Chronic tracheostomy with the mechanical ventilation 5. Status post G-tube placement for nutrition 6. Hypotension currently off of vasopressors 7. Lactic acidosis -continue IV antibiotics follow up Infectious Disease consultation follow up Pulmonary recommendations. Plan discussed with: Patient, Other Date of Service: Jan 19, 2025 Billing Provider: ABIDA BELLO MD Common Visit Codes: NOT BILLABLE ABIDA BELLO MD Jan 19, 2025 18:07
[2025-01-19] MEDS: ONDANSETRON HCL 4 MG/2 ML VIAL IV PRN (19:51)
--- NOTE | 2025-01-19 23:36 | DVHPN2 ---
Progress Note - Dictate Date Seen: Jan 19, 2025 Medical Necessity Reason Pt with a Central, PICC or Fol: No Subjective Patient seen and examined at bedside. On mechanical ventilator via trach Overnight events reviewed. vital signs Vital Sign Date Time Temp Pulse Resp B/P (MAP) Pulse Ox O2 Delivery O2 Flow Rate FiO2 01/19/25 20:30 90 31 100 Mechanical Ventilator+ 35 35 01/19/25 20:10 123/72 (89) 01/19/25 20:00 99.0 99.0 Total Intake and Output 01/18/25 01/18/25 01/19/25 15:00 23:00 07:00 Intake Total 418.5 ml 1525.5 ml 970 ml Output Total 975 ml 580 ml Balance 418.5 ml 550.5 ml 390 ml medications Current Medications Medications Dose Ordered Sig/Robe Route Start Time Stop Time Status Last Admin Dose Admin Ipratropium [place] 0.5 mg Q4HR NEB 01/15/25 22:00 01/19/25 22:26 0.5 MG Albuterol 2.5 mg Q6HPRN PRN NEB 01/15/25 20:30 01/19/25 05:33 2.5 MG Enoxaparin Sodium 40 mg DAILY SC 01/16/25 10:00 01/19/25 09:41 40 MG Pantoprazole Sodium 40 mg DAILY IV 01/16/25 10:00 01/19/25 09:40 40 MG Acetaminophen 650 mg Q6HPRN PRN PO 01/15/25 20:30 01/18/25 21:01 650 MG Acetaminophen/ Hydrocodone Bitart 1 tab Q6HPRN PRN PO 01/15/25 20:30 Norepinephrine Bitartrate 250 ml @ 3.75 mls/hr Q24H IV 01/16/25 00:00 Diagnostic Test (Pha) 1 strip ACHS 01/16/25 07:00 01/19/25 17:00 1 STRIP Insulin Human Regular ACHS SC 01/16/25 07:00 01/19/25 17:00 3 UNITS Dextrose 50 ml UD PRN IV 01/16/25 06:45 Ceftriaxone Sodium 50 ml @ 100 mls/hr DAILY@09 IV 01/17/25 09:00 01/19/25 09:38 100 MLS/HR Purified Water 400 ml Q6HR GT 01/16/25 18:00 01/19/25 20:00 400 ML Linezolid 300 ml @ 150 mls/hr Q12HR IV 01/17/25 10:00 01/19/25 22:45 150 MLS/HR Enteral Nutritional Formula 110 ml QID PO 01/17/25 12:00 01/19/25 20:00 110 ML Furosemide 40 mg DAILY PO 01/18/25 10:00 01/19/25 09:41 40 MG Ondansetron HCl 4 mg Q4HPRN PRN IV 01/19/25 19:30 01/19/25 19:51 4 MG objective Gen.: Patient lying in bed in medical ICU. On mechanical ventilator via trach. Head: Normocephalic, atraumatic. Eyes: PERRLA. Ears: Normal external anatomy. Throat: Endotracheal tube and orogastric tube in place. Neck: Trach in place. Chest: Transmitted breath sounds bilaterally. Decreased air entry bilaterally. No wheezing. Bibasilar crackles. Cardiovascular: Positive S1, positive S2. Regular rate and rhythm. Abdomen: Positive bowel sounds in all 4 quadrants. Soft, nontender, nondistended. : Agrawal in place. Normal external genitalia. Rectal: Deferred. Skin: Warm, dry. Intact. Extremities: 2+ radial pulses bilaterally. No lower extremity edema. Neuro: Off sedation laboratory and microbiology Laboratory Tests 01/19/25 08:55 01/18/25 04:38 Test 01/19/25 08:55 Range/Units Serum Glucose 144 H 74-106 mg/dL Assessment/Plan Impression: Acute hypoxic respiratory failure On mechanical ventilator S/p tracheostomy Septic shock Symptomatic bradycardia Metabolic encephalopathy Amyotrophic lateral sclerosis Events: Remains on vent via trach Vent support PRN OK to come off ventilator for meals. Continue trach care per RT. Note, pt had a reaction to Zosyn on 01/16/25 and required pressors for 1 hour, tapered off. Remains off pressors for 3 days. Hemodynamically stable. Continue antibiotics Sputum cx grew Pseudomonas aeruginosa and Providencia stuartii Blood cultures initially grew Staphylococcus schleiferi - repeat blood cx show no growth for 24 hours. ID recommendations appreciated. WBC within normal limits at 7.5 K. Continue bronchodilators Accu-Cheks, ISS. Protonix for GI prophylaxis. Lactic acid improved. Maintain euvolemia on Lasix Free water for hydration d/t metabolic acidosis Monitor renal function Monitor electrolytes. Supplement as necessary. Monitor ins and outs. Chest x-ray was notable for pulmonary vascular congestion. Labs and imaging reviewed. Rest of plan as noted below. Plan: On mechanical ventilator via tracheostomy. Vent settings: AC mode with RR 16, VT 450, Peep +5, with an Fi02 set at 35%. Patient has a 7.0 trach Shiley secured with trach ties. Cuff pressure set at [id number]. Titrate FIO2 to keep O2 saturation above 90%. Head of bed elevation Aspiration precautions Trach care per RT Bronchodilators. Antibiotics. Pressors as necessary for hemodynamic support Titrate to keep mean arterial pressure greater than 65 mmHg. Follow up Cardiology recommendations Accu-Cheks, ISS. Protonix for GI prophylaxis. Monitor renal function Monitor electrolytes. Supplement as necessary. Monitor ins and outs. Maintain euvolemia w/ Lasix. Monitor CBC, BMP, lactate GI prophylaxis. DVT prophylaxis. Prognosis: Poor given patient's multiple co-morbidities. Condition: Critical Rest of plan per hospitalist and other consultants. A total of 35 minutes of critical care time was spent reviewing the patient record, examining the patient, making a diagnostic and therapeutic plan, discussing this plan with the medical personnel, following up on diagnostic studies and following the patient for clinical stability excluding any and all procedures. At least 50% of this time was spent in direct, [id number] contact. Thank you, LEONEL Franklin, for allowing me to participate in this patient's care. Further recommendations will depend on the patient's clinical course. Please do not hesitate to contact me if you have any questions or concerns. This medical document was created using an electronic medical record system with [employer] dictation system. Although these documentations are being carefully reviewed, there may still be some phonetic and typographical changes. The errors are purely typographical, due to imperfection on the software program, and do not reflect any compromise in the patient's medical care. Dietary Evaluation Review Comments: 1) [facility] + cardiac diet as medically feasible 2) If pt cannot tolerate PO, consider TF Glucerna 1.2Cal @ 70ml/hr (goal). 3) Monitor wt trend, lab values, skin integrity Expected Outcomes/Goals: To meet >75% estimated needs Fu 2-3 days Plan discussed with: Patient, Other (KATJA Stubbs) XAVIER BECKER MD Jan 19, 2025 23:36
[2025-01-20] VITALS (47 sets, daily range): BP systolic 112–133; BP diastolic 62–78; PULSE 85–118; RESP 8–43; TEMP 98.1–99; O2SAT 97–100
[2025-01-20 06:47] LABS: Hematocrit 41.8 % (41.0-53.0); Hemoglobin 14.2 g/dL (13.5-17.5); Mean Corpuscular Hemoglobin 29.9 pg (28.0-32.0); Mean Corpuscular Volume 87.8 fL (80.0-100.0); Nucleated Red Blood Cells % 0.1 %
[2025-01-20 07:02] LABS: Alanine Aminotransferase 25 U/L (7-40); Albumin 4.0 g/dL (3.2-4.8); Alkaline Phosphatase 79 U/L (46-116); Anion Gap 14 (5-15); BUN/Creatinine Ratio 45.8 (10.0-20.0); Bilirubin, Total 0.8 mg/dL (0.2-1.0); Blood Urea Nitrogen 11 mg/dL (9-23); Calcium 9.7 mg/dL (8.7-10.4); Carbon Dioxide 20 mmol/L (20-31); Chloride 105 mmol/L (98-107); Glucose 155 mg/dL (74-106); Potassium 3.3 mmol/L (3.5-5.1); Sodium 139 mmol/L (136-145); Total Protein 6.1 g/dL (5.7-8.2)
[2025-01-20] MEDS ORDERED: ERTAPENEM SOD 1 GM INJ VIAL IM SCH (15:00)
[2025-01-20] MEDS ORDERED: ERTAPENEM 1 GM IV SCH (15:00)
[2025-01-20] MEDS: ERTAPENEM SOD INJ 1 GM in SODIUM CHL 0.9% 50 ML IV SCH (15:03)
--- NOTE | 2025-01-20 17:34 | DVHPN2 ---
Subjective Overnight events noted patient's repeat blood cultures are negative. Reviewed: Care Plan Changes from previous H/P or p: No Changes Objective Vitals Vital Signs Date Time Temp Pulse Resp B/P (MAP) Pulse Ox O2 Delivery O2 Flow Rate FiO2 01/20/25 16:35 107 23 118/66 (83) 97 35 01/20/25 10:00 Mechanical Ventilator 01/20/25 08:00 98.7 98.7 Intake/Output Intake and Output 01/20/25 07:00 Intake Total 1890 ml Output Total 1100 ml Balance 790 ml IV Total 650 ml Tube Feeding 840 ml Other 400 ml Output Urine Total 1100 ml # Bowel Movements 1 Exam HEENT pupils are reactive Neck status post tracheostomy currently on ventilator support CV is S1-S2 regular rate and rhythm Respiratory bilateral diminished breath sounds bases GI positive bowel sound Extremity no edema 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 Medications Current Medications Medications Dose Ordered Sig/Robe Route Start Time Stop Time Status Last Admin Dose Admin Ipratropium [place] 0.5 mg Q4HR NEB 01/15/25 22:00 01/20/25 14:39 0.5 MG Albuterol 2.5 mg Q6HPRN PRN NEB 01/15/25 20:30 01/20/25 14:39 2.5 MG Enoxaparin Sodium 40 mg DAILY SC 01/16/25 10:00 01/20/25 09:02 40 MG Pantoprazole Sodium 40 mg DAILY IV 01/16/25 10:00 01/20/25 09:01 40 MG Acetaminophen 650 mg Q6HPRN PRN PO 01/15/25 20:30 01/18/25 21:01 650 MG Acetaminophen/ Hydrocodone Bitart 1 tab Q6HPRN PRN PO 01/15/25 20:30 Norepinephrine Bitartrate 250 ml @ 3.75 mls/hr Q24H IV 01/16/25 00:00 Diagnostic Test (Pha) 1 strip ACHS 01/16/25 07:00 01/20/25 16:29 1 STRIP Insulin Human Regular ACHS SC 01/16/25 07:00 01/20/25 16:29 3 UNITS Dextrose 50 ml UD PRN IV 01/16/25 06:45 Purified Water 400 ml Q6HR GT 01/16/25 18:00 01/20/25 12:00 400 ML Linezolid 300 ml @ 150 mls/hr Q12HR IV 01/17/25 10:00 01/20/25 09:00 150 MLS/HR Enteral Nutritional Formula 110 ml QID PO 01/17/25 12:00 01/20/25 12:00 110 ML Furosemide 40 mg DAILY PO 01/18/25 10:00 01/20/25 09:02 40 MG Ondansetron HCl 4 mg Q4HPRN PRN IV 01/19/25 19:30 01/19/25 19:51 4 MG Ertapenem 1 gm DAILY IM 01/20/25 15:00 UNV Ertapenem 1 gm DAILY IM 01/21/25 10:00 UNV Ertapenem 1 gm/ Sodium Chloride 50 ml @ 100 mls/hr DAILY IV 01/20/25 15:03 01/20/25 15:03 100 MLS/HR Insulin Glargine 25 units HS SC 01/20/25 22:00 Laboratory Results Laboratory Tests 01/20/25 05:08 Chemistry Test 01/20/25 05:08 Albumin 4.0 g/dL (3.2-4.8) Calcium Level 9.7 mg/dL (8.7-10.4) Total Protein 6.1 g/dL (5.7-8.2) LFT Test 01/20/25 05:08 Alanine Aminotransferase (ALT) 25 U/L (7-40) Alkaline Phosphatase 79 U/L (46-116) Aspartate Amino Transferase (AST) 20 U/L (13-40) Total Bilirubin 0.8 mg/dL (0.2-1.0) Urinalysis Test 01/16/25 13:21 Urine Color Yellow (Yellow) Urine Clarity Turbid (Clear) H Urine pH 6.0 (5.0-9.0) Urine Specific [place] 1.020 (1.001-1.035) Urine Protein 1+ (Negative) H Urine Ketones 3+ (Negative) H Urine Blood Negative /uL (Negative) Urine Nitrite Negative (Negative) Urine Bilirubin Negative (Negative) Urine Urobilinogen Normal mg/dL (Negative) Urine Leukocyte Esterase Negative /uL (Negative) Urine RBC 2 /hpf (0 - 3) Urine Microscopic WBC 13 /HPF (0-3) H Urine Squamous Epithelial Cells Few /hpf (<5) Urine Bacteria Few /hpf (None Seen) H Urine Hyaline Casts Few /lpf (0 - 2) Urine Mucus Few (None Seen) Urine Glucose Normal mg/dL (Normal) Microbiology Microbiology Date/Time Source Procedure Growth Status 01/18/25 15:29 Blood Blood Culture - Preliminary NO GROWTH AFTER 48 HOURS OF INCUBATION. Resulted 01/17/25 15:25 Sputum Gram Stain - Final Complete 01/17/25 15:25 Respiratory Culture - Final Pseudomonas aeruginosa Providencia staurtii Complete 01/17/25 13:03 Urine - [place] Urine Culture - Final Complete 01/16/25 00:35 Nose MRSA Screen - Final Complete Assessment/Plan Assessment/Plan 64-year-old male with a known history of ALS, chronic tracheostomy currently on mechanical ventilation, status post G-tube placement, hypertension, dyslipidemia initially presented to hospital with altered mental status and hypotension found to have 1. Septic shock secondary to Gram-positive bacteremia, repeat blood cultures are negative 2. Gram-positive bacteremia repeat blood cultures are negative 3. ALS 4. Chronic tracheostomy with the mechanical ventilation 5. Status post G-tube placement for nutrition 6. Hypotension currently off of vasopressors 7. Lactic acidosis 8. 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 -continue IV antibiotics follow up Infectious Disease consultation follow up Pulmonary recommendations. 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
[2025-01-20] MEDS: INSULIN LANTUS (GLARGINE) 1 /0.01ml (100units/ml) SC SCH (21:40)
--- NOTE | 2025-01-20 22:26 | DVHPN2 ---
Progress Note - Dictate Date Seen: Jan 20, 2025 Medical Necessity Reason Pt with a Central, PICC or Fol: No Subjective Patient seen and examined at bedside. On mechanical ventilator via trach Overnight events reviewed. vital signs Vital Sign Date Time Temp Pulse Resp B/P (MAP) Pulse Ox O2 Delivery O2 Flow Rate FiO2 01/20/25 20:15 97 28 121/75 (90) 98 35 01/20/25 20:00 98.7 98.7 01/20/25 10:00 Mechanical Ventilator Total Intake and Output 01/19/25 01/19/25 01/20/25 15:00 23:00 07:00 Intake Total 350 ml 600 ml 940 ml Output Total 900 ml 200 ml Balance 350 ml -300 ml 740 ml medications Current Medications Medications Dose Ordered Sig/Robe Route Start Time Stop Time Status Last Admin Dose Admin Ipratropium [place] 0.5 mg Q4HR NEB 01/15/25 22:00 01/20/25 19:04 0.5 MG Albuterol 2.5 mg Q6HPRN PRN NEB 01/15/25 20:30 01/20/25 14:39 2.5 MG Enoxaparin Sodium 40 mg DAILY SC 01/16/25 10:00 01/20/25 09:02 40 MG Pantoprazole Sodium 40 mg DAILY IV 01/16/25 10:00 01/20/25 09:01 40 MG Acetaminophen 650 mg Q6HPRN PRN PO 01/15/25 20:30 01/18/25 21:01 650 MG Acetaminophen/ Hydrocodone Bitart 1 tab Q6HPRN PRN PO 01/15/25 20:30 Norepinephrine Bitartrate 250 ml @ 3.75 mls/hr Q24H IV 01/16/25 00:00 Diagnostic Test (Pha) 1 strip ACHS 01/16/25 07:00 01/20/25 20:23 1 STRIP Insulin Human Regular ACHS SC 01/16/25 07:00 01/20/25 16:29 3 UNITS Dextrose 50 ml UD PRN IV 01/16/25 06:45 Purified Water 400 ml Q6HR GT 01/16/25 18:00 01/20/25 21:35 400 ML Linezolid 300 ml @ 150 mls/hr Q12HR IV 01/17/25 10:00 01/20/25 21:35 150 MLS/HR Enteral Nutritional Formula 110 ml QID PO 01/17/25 12:00 01/20/25 21:35 110 ML Furosemide 40 mg DAILY PO 01/18/25 10:00 01/20/25 09:02 40 MG Ondansetron HCl 4 mg Q4HPRN PRN IV 01/19/25 19:30 01/19/25 19:51 4 MG Ertapenem 1 gm DAILY IM 01/20/25 15:00 UNV Ertapenem 1 gm DAILY IM 01/21/25 10:00 UNV Ertapenem 1 gm/ Sodium Chloride 50 ml @ 100 mls/hr DAILY IV 01/20/25 15:03 01/20/25 15:03 100 MLS/HR Insulin Glargine 25 units HS SC 01/20/25 22:00 01/20/25 21:40 25 UNITS objective Gen.: Patient lying in bed in medical ICU. On mechanical ventilator via trach. Head: Normocephalic, atraumatic. Eyes: PERRLA. Ears: Normal external anatomy. Throat: Endotracheal tube and orogastric tube in place. Neck: Trach in place. Chest: Transmitted breath sounds bilaterally. Decreased air entry bilaterally. No wheezing. Bibasilar crackles. Cardiovascular: Positive S1, positive S2. Regular rate and rhythm. Abdomen: Positive bowel sounds in all 4 quadrants. Soft, nontender, nondistended. : Agrawal in place. Normal external genitalia. Rectal: Deferred. Skin: Warm, dry. Intact. Extremities: 2+ radial pulses bilaterally. No lower extremity edema. Neuro: Off sedation laboratory and microbiology Laboratory Tests 01/20/25 05:08 Test 01/20/25 05:08 Range/Units Serum Glucose 155 H 74-106 mg/dL Assessment/Plan Impression: Acute hypoxic respiratory failure On mechanical ventilator S/p tracheostomy Septic shock Symptomatic bradycardia Metabolic encephalopathy Amyotrophic lateral sclerosis Events: Remains on vent via trach Vent support PRN OK to come off ventilator for meals. Continue trach care per RT. Note, pt had a reaction to Zosyn on 01/16/25 and required pressors for 1 hour, tapered off. Remains off pressors for 4 days. Hemodynamically stable. Continue antibiotics Sputum cx grew Pseudomonas aeruginosa and Providencia stuartii Blood cultures initially grew Staphylococcus schleiferi - repeat blood cx show no growth for 48 hours. ID recommendations appreciated. WBC within normal limits. Continue bronchodilators HOB elevation Aspiration precautions Accu-Cheks, ISS. Protonix for GI prophylaxis. Lactic acid improved. Maintain euvolemia on Lasix Free water via GT for hydration d/t metabolic acidosis Monitor renal function Monitor electrolytes. Supplement as necessary. Monitor ins and outs. Chest x-ray was notable for pulmonary vascular congestion. Labs and imaging reviewed. Rest of plan as noted below. Plan: On mechanical ventilator via tracheostomy. Vent settings: AC mode with RR 16, VT 450, Peep +5, with an Fi02 set at 35%. Patient has a 7.0 trach Shiley secured with trach ties. Cuff pressure set at [id number]. Titrate FIO2 to keep O2 saturation above 90%. Head of bed elevation Aspiration precautions Trach care per RT Bronchodilators. Antibiotics. Pressors as necessary for hemodynamic support Titrate to keep mean arterial pressure greater than 65 mmHg. Follow up Cardiology recommendations Accu-Cheks, ISS. Protonix for GI prophylaxis. Monitor renal function Monitor electrolytes. Supplement as necessary. Monitor ins and outs. Maintain euvolemia w/ Lasix. Monitor CBC, BMP, lactate GI prophylaxis. DVT prophylaxis. Prognosis: Poor given patient's multiple co-morbidities. Condition: Critical Rest of plan per hospitalist and other consultants. A total of 35 minutes of critical care time was spent reviewing the patient record, examining the patient, making a diagnostic and therapeutic plan, discussing this plan with the medical personnel, following up on diagnostic studies and following the patient for clinical stability excluding any and all procedures. At least 50% of this time was spent in direct, [id number] contact. Thank you, LEONEL Franklin, for allowing me to participate in this patient's care. Further recommendations will depend on the patient's clinical course. Please do not hesitate to contact me if you have any questions or concerns. This medical document was created using an electronic medical record system with [employer] dictation system. Although these documentations are being carefully reviewed, there may still be some phonetic and typographical changes. The errors are purely typographical, due to imperfection on the software program, and do not reflect any compromise in the patient's medical care. Dietary Evaluation Review Comments: 1) Advance to [facility] 60gm + cardiac diet as medically feasible 2) If pt cannot tolerate PO, consider TF Glucerna 1.2Cal @ 70ml/hr (goal). 3) Monitor wt trend, lab values, skin integrity Expected Outcomes/Goals: To meet >75% estimated needs Fu 2-3 days Plan discussed with: Patient, Other (KATJA Stubbs) Critical Care Time(min): 35 XAVIER BECKER MD Jan 20, 2025 22:26
[2025-01-21] VITALS (38 sets, daily range): BP systolic 111–141; BP diastolic 61–84; PULSE 84–112; RESP 15–49; TEMP 97.8–98.5; O2SAT 97–100
[2025-01-21 04:21] LABS: Hematocrit 42.7 % (41.0-53.0); Hemoglobin 14.3 g/dL (13.5-17.5); Mean Corpuscular Hemoglobin 29.5 pg (28.0-32.0); Mean Corpuscular Volume 88.4 fL (80.0-100.0); Nucleated Red Blood Cells % 0.1 %
[2025-01-21 04:32] LABS: Alanine Aminotransferase 35 U/L (7-40); Albumin 3.8 g/dL (3.2-4.8); Alkaline Phosphatase 78 U/L (46-116); Anion Gap 11 (5-15); BUN/Creatinine Ratio 56.3 (10.0-20.0); Bilirubin, Total 0.6 mg/dL (0.2-1.0); Blood Urea Nitrogen 9 mg/dL (9-23); Chloride 107 mmol/L (98-107); Sodium 138 mmol/L (136-145); Total Protein 6.1 g/dL (5.7-8.2)
[2025-01-21 04:35] LABS: Calcium 8.5 mg/dL (8.7-10.4); Carbon Dioxide 20 mmol/L (20-31); Glucose 143 mg/dL (74-106); Potassium 3.3 mmol/L (3.5-5.1)
[2025-01-21] MEDS ORDERED: ERTAPENEM SOD 1 GM INJ VIAL IM SCH (10:00)
--- NOTE | 2025-01-21 16:40 | DVHPN2 ---
Subjective Overnight events noted patient's repeat blood cultures are negative. Reviewed: Care Plan Changes from previous H/P or p: No Changes Objective Vitals Vital Signs Date Time Temp Pulse Resp B/P (MAP) Pulse Ox O2 Delivery O2 Flow Rate FiO2 01/21/25 15:55 97 28 112/65 (81) 99 35 01/21/25 13:00 97.8 97.8 01/21/25 10:20 Mechanical Ventilator Intake/Output Intake and Output 01/21/25 07:00 Intake Total 2250 ml Output Total 900 ml Balance 1350 ml IV Total 700 ml Tube Feeding 350 ml Other 1200 ml Output Urine Total 900 ml # Voids 1 Exam HEENT pupils are reactive Neck status post tracheostomy currently on ventilator support CV is S1-S2 regular rate and rhythm Respiratory bilateral diminished breath sounds bases GI positive bowel sound Extremity no 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 Medications Current Medications Medications Dose Ordered Sig/Robe Route Start Time Stop Time Status Last Admin Dose Admin Ipratropium [place] 0.5 mg Q4HR NEB 01/15/25 22:00 01/21/25 14:32 0.5 MG Albuterol 2.5 mg Q6HPRN PRN NEB 01/15/25 20:30 01/21/25 14:32 2.5 MG Enoxaparin Sodium 40 mg DAILY SC 01/16/25 10:00 01/21/25 10:27 40 MG Pantoprazole Sodium 40 mg DAILY IV 01/16/25 10:00 01/21/25 10:29 40 MG Acetaminophen 650 mg Q6HPRN PRN PO 01/15/25 20:30 01/21/25 10:29 650 MG Acetaminophen/ Hydrocodone Bitart 1 tab Q6HPRN PRN PO 01/15/25 20:30 Norepinephrine Bitartrate 250 ml @ 3.75 mls/hr Q24H IV 01/16/25 00:00 Diagnostic Test (Pha) 1 strip ACHS 01/16/25 07:00 01/21/25 12:07 1 STRIP Insulin Human Regular ACHS SC 01/16/25 07:00 01/21/25 12:11 3 UNITS Dextrose 50 ml UD PRN IV 01/16/25 06:45 Purified Water 400 ml Q6HR GT 01/16/25 18:00 01/21/25 12:08 400 ML Linezolid 300 ml @ 150 mls/hr Q12HR IV 01/17/25 10:00 01/21/25 10:44 150 MLS/HR Enteral Nutritional Formula 110 ml QID PO 01/17/25 12:00 01/21/25 13:10 110 ML Furosemide 40 mg DAILY PO 01/18/25 10:00 01/21/25 10:29 40 MG Ondansetron HCl 4 mg Q4HPRN PRN IV 01/19/25 19:30 01/19/25 19:51 4 MG Ertapenem 1 gm DAILY IM 01/20/25 15:00 UNV Ertapenem 1 gm DAILY IM 01/21/25 10:00 UNV Ertapenem 1 gm/ Sodium Chloride 50 ml @ 100 mls/hr DAILY IV 01/20/25 15:03 01/21/25 12:08 100 MLS/HR Insulin Glargine 25 units HS SC 01/20/25 22:00 01/20/25 21:40 25 UNITS Laboratory Results Laboratory Tests 01/21/25 04:08 Chemistry Test 01/21/25 04:08 Albumin 3.8 g/dL (3.2-4.8) Calcium Level 8.5 mg/dL (8.7-10.4) L Total Protein 6.1 g/dL (5.7-8.2) LFT Test 01/21/25 04:08 Alanine Aminotransferase (ALT) 35 U/L (7-40) Alkaline Phosphatase 78 U/L (46-116) Aspartate Amino Transferase (AST) 27 U/L (13-40) Total Bilirubin 0.6 mg/dL (0.2-1.0) Urinalysis Test 01/16/25 13:21 Urine Color Yellow (Yellow) Urine Clarity Turbid (Clear) H Urine pH 6.0 (5.0-9.0) Urine Specific [place] 1.020 (1.001-1.035) Urine Protein 1+ (Negative) H Urine Ketones 3+ (Negative) H Urine Blood Negative /uL (Negative) Urine Nitrite Negative (Negative) Urine Bilirubin Negative (Negative) Urine Urobilinogen Normal mg/dL (Negative) Urine Leukocyte Esterase Negative /uL (Negative) Urine RBC 2 /hpf (0 - 3) Urine Microscopic WBC 13 /HPF (0-3) H Urine Squamous Epithelial Cells Few /hpf (<5) Urine Bacteria Few /hpf (None Seen) H Urine Hyaline Casts Few /lpf (0 - 2) Urine Mucus Few (None Seen) Urine Glucose Normal mg/dL (Normal) Microbiology Microbiology Date/Time Source Procedure Growth Status 01/18/25 15:29 Blood Blood Culture - Preliminary NO GROWTH AFTER 72 HOURS OF INCUBATION. Resulted 01/17/25 15:25 Sputum Gram Stain - Final Complete 01/17/25 15:25 Respiratory Culture - Final Pseudomonas aeruginosa Providencia staurtii Complete 01/17/25 13:03 Urine - [place] Urine Culture - Final Complete 01/16/25 00:35 Nose MRSA Screen - Final Complete Assessment/Plan Assessment/Plan 64-year-old male with a known history of ALS, chronic tracheostomy currently on mechanical ventilation, status post G-tube placement, hypertension, dyslipidemia initially presented to hospital with altered mental status and hypotension found to have 1. Septic shock secondary to Gram-positive bacteremia, repeat blood cultures are negative 2. Gram-positive bacteremia repeat blood cultures are negative 3. ALS 4. Chronic tracheostomy with the mechanical ventilation 5. Status post G-tube placement for nutrition 6. Hypotension currently off of vasopressors 7. Lactic acidosis 8. 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 -continue IV antibiotics follow up Infectious Disease consultation follow up Pulmonary recommendations. Plan discussed with: Patient, Other My Orders Orders - ABIDA BELLO MD Procedure Category Date Status Time Insulin Lantus PHA 01/20/25 In Process (Glargine) (Lantus) 22:00 * Certified Paralegal CONS 01/20/25 Transmitted Consult * Certified Paralegal CONS 01/21/25 Transmitted Consult Discharge DISCHARGE 01/21/25 Verified 16:38 Date of Service: Jan 21, 2025 Billing Provider: ABIDA BELLO MD Common Visit Codes: NOT BILLABLE ABIDA BELLO MD Jan 21, 2025 16:40
--- NOTE | 2025-01-21 23:34 | DVHPN2 ---
Consult Progress Note Date Seen: Jan 21, 2025 Objective vital signs Vital Sign Date Time Temp Pulse Resp B/P (MAP) Pulse Ox O2 Delivery O2 Flow Rate FiO2 01/21/25 22:20 95 35 125/69 (87) 99 35 01/21/25 20:00 98.5 98.5 01/21/25 10:20 Mechanical Ventilator Total Intake and Output 01/20/25 01/20/25 01/21/25 15:00 23:00 07:00 Intake Total 350 ml 1090 ml 810 ml Output Total 450 ml 450 ml Balance 350 ml 640 ml 360 ml medications Current Medications Medications Dose Ordered Sig/Robe Route Start Time Stop Time Status Last Admin Dose Admin Ipratropium [place] 0.5 mg Q4HR NEB 01/15/25 22:00 01/21/25 22:20 0.5 MG Albuterol 2.5 mg Q6HPRN PRN NEB 01/15/25 20:30 01/21/25 18:38 2.5 MG Enoxaparin Sodium 40 mg DAILY SC 01/16/25 10:00 01/21/25 10:27 40 MG Pantoprazole Sodium 40 mg DAILY IV 01/16/25 10:00 01/21/25 10:29 40 MG Acetaminophen 650 mg Q6HPRN PRN PO 01/15/25 20:30 01/21/25 10:29 650 MG Acetaminophen/ Hydrocodone Bitart 1 tab Q6HPRN PRN PO 01/15/25 20:30 Norepinephrine Bitartrate 250 ml @ 3.75 mls/hr Q24H IV 01/16/25 00:00 Diagnostic Test (Pha) 1 strip ACHS 01/16/25 07:00 01/21/25 17:33 1 STRIP Insulin Human Regular ACHS SC 01/16/25 07:00 01/21/25 17:34 2 UNITS Dextrose 50 ml UD PRN IV 01/16/25 06:45 Purified Water 400 ml Q6HR GT 01/16/25 18:00 01/21/25 17:39 400 ML Linezolid 300 ml @ 150 mls/hr Q12HR IV 01/17/25 10:00 01/21/25 10:44 150 MLS/HR Enteral Nutritional Formula 110 ml QID PO 01/17/25 12:00 01/21/25 18:33 110 ML Furosemide 40 mg DAILY PO 01/18/25 10:00 01/21/25 10:29 40 MG Ondansetron HCl 4 mg Q4HPRN PRN IV 01/19/25 19:30 01/19/25 19:51 4 MG Ertapenem 1 gm DAILY IM 01/20/25 15:00 UNV Ertapenem 1 gm DAILY IM 01/21/25 10:00 UNV Ertapenem 1 gm/ Sodium Chloride 50 ml @ 100 mls/hr DAILY IV 01/20/25 15:03 01/21/25 12:08 100 MLS/HR Insulin Glargine 25 units HS SC 01/20/25 22:00 01/21/25 22:27 25 UNITS laboratory and microbiology Laboratory Tests 01/21/25 04:08 Test 01/21/25 04:08 Range/Units Serum Glucose 143 H 74-106 mg/dL Problem List/Assessment/Plan Problem List/Assessment/Plan patient seen at bedside full note to follow patient tolerating ertapenem without rash or diarrhea on minimal vent hypotension and leukocytosis resolved refuses offloading off sacrum and heels plan: continue linezolid x 1 days continue ertapenem 1g IM x 5 days add Ciprofloxacin 500mg po bid x 5 days to more adequately cover for pseudomonas Plan discussed with: Patient Dietary Evaluation Review Comments: 1) Advance to [facility] 60gm + cardiac diet as medically feasible 2) If pt cannot tolerate PO, consider TF Glucerna 1.2Cal @ 70ml/hr (goal). 3) Monitor wt trend, lab values, skin integrity Expected Outcomes/Goals: To meet >75% estimated needs Fu 2-3 days LEISA PEREZ MD Jan 21, 2025 23:34
--- NOTE | 2025-01-21 23:34 | DVHPN2 ---
Consult Progress Note Objective vital signs Vital Sign Date Time Temp Pulse Resp B/P (MAP) Pulse Ox O2 Delivery O2 Flow Rate FiO2 01/21/25 22:20 95 35 125/69 (87) 99 35 01/21/25 20:00 98.5 98.5 01/21/25 10:20 Mechanical Ventilator Total Intake and Output 01/20/25 01/20/25 01/21/25 15:00 23:00 07:00 Intake Total 350 ml 1090 ml 810 ml Output Total 450 ml 450 ml Balance 350 ml 640 ml 360 ml medications Current Medications Medications Dose Ordered Sig/Robe Route Start Time Stop Time Status Last Admin Dose Admin Ipratropium [place] 0.5 mg Q4HR NEB 01/15/25 22:00 01/21/25 22:20 0.5 MG Albuterol 2.5 mg Q6HPRN PRN NEB 01/15/25 20:30 01/21/25 18:38 2.5 MG Enoxaparin Sodium 40 mg DAILY SC 01/16/25 10:00 01/21/25 10:27 40 MG Pantoprazole Sodium 40 mg DAILY IV 01/16/25 10:00 01/21/25 10:29 40 MG Acetaminophen 650 mg Q6HPRN PRN PO 01/15/25 20:30 01/21/25 10:29 650 MG Acetaminophen/ Hydrocodone Bitart 1 tab Q6HPRN PRN PO 01/15/25 20:30 Norepinephrine Bitartrate 250 ml @ 3.75 mls/hr Q24H IV 01/16/25 00:00 Diagnostic Test (Pha) 1 strip ACHS 01/16/25 07:00 01/21/25 17:33 1 STRIP Insulin Human Regular ACHS SC 01/16/25 07:00 01/21/25 17:34 2 UNITS Dextrose 50 ml UD PRN IV 01/16/25 06:45 Purified Water 400 ml Q6HR GT 01/16/25 18:00 01/21/25 17:39 400 ML Linezolid 300 ml @ 150 mls/hr Q12HR IV 01/17/25 10:00 01/21/25 10:44 150 MLS/HR Enteral Nutritional Formula 110 ml QID PO 01/17/25 12:00 01/21/25 18:33 110 ML Furosemide 40 mg DAILY PO 01/18/25 10:00 01/21/25 10:29 40 MG Ondansetron HCl 4 mg Q4HPRN PRN IV 01/19/25 19:30 01/19/25 19:51 4 MG Ertapenem 1 gm DAILY IM 01/20/25 15:00 UNV Ertapenem 1 gm DAILY IM 01/21/25 10:00 UNV Ertapenem 1 gm/ Sodium Chloride 50 ml @ 100 mls/hr DAILY IV 01/20/25 15:03 01/21/25 12:08 100 MLS/HR Insulin Glargine 25 units HS SC 01/20/25 22:00 01/21/25 22:27 25 UNITS laboratory and microbiology Laboratory Tests 01/21/25 04:08 Test 01/21/25 04:08 Range/Units Serum Glucose 143 H 74-106 mg/dL Dietary Evaluation Review Comments: 1) [facility] + cardiac diet as medically feasible 2) If pt cannot tolerate PO, consider TF Glucerna 1.2Cal @ 70ml/hr (goal). 3) Monitor wt trend, lab values, skin integrity Expected Outcomes/Goals: To meet >75% estimated needs Fu 2-3 days LEISA PEREZ MD Jan 21, 2025 23:34
[2025-01-21] MEDS ORDERED: CIP500T GT (23:47)
--- NOTE | 2025-01-21 23:53 | DVHPN2 ---
Progress Note - Dictate Date Seen: Jan 21, 2025 Medical Necessity Reason Pt with a Central, PICC or Fol: No Subjective Patient seen and examined at bedside. On mechanical ventilator via trach Overnight events reviewed. vital signs Vital Sign Date Time Temp Pulse Resp B/P (MAP) Pulse Ox O2 Delivery O2 Flow Rate FiO2 01/21/25 22:20 95 35 125/69 (87) 99 35 01/21/25 20:00 98.5 98.5 01/21/25 10:20 Mechanical Ventilator Total Intake and Output 01/20/25 01/20/25 01/21/25 14:59 22:59 06:59 Intake Total 350 ml 1090 ml 810 ml Output Total 450 ml 450 ml Balance 350 ml 640 ml 360 ml medications Current Medications Medications Dose Ordered Sig/Robe Route Start Time Stop Time Status Last Admin Dose Admin Ipratropium [place] 0.5 mg Q4HR NEB 01/15/25 22:00 01/21/25 22:20 0.5 MG Albuterol 2.5 mg Q6HPRN PRN NEB 01/15/25 20:30 01/21/25 18:38 2.5 MG Enoxaparin Sodium 40 mg DAILY SC 01/16/25 10:00 01/21/25 10:27 40 MG Pantoprazole Sodium 40 mg DAILY IV 01/16/25 10:00 01/21/25 10:29 40 MG Acetaminophen 650 mg Q6HPRN PRN PO 01/15/25 20:30 01/21/25 10:29 650 MG Acetaminophen/ Hydrocodone Bitart 1 tab Q6HPRN PRN PO 01/15/25 20:30 Norepinephrine Bitartrate 250 ml @ 3.75 mls/hr Q24H IV 01/16/25 00:00 Diagnostic Test (Pha) 1 strip ACHS 01/16/25 07:00 01/21/25 17:33 1 STRIP Insulin Human Regular ACHS SC 01/16/25 07:00 01/21/25 17:34 2 UNITS Dextrose 50 ml UD PRN IV 01/16/25 06:45 Purified Water 400 ml Q6HR GT 01/16/25 18:00 01/21/25 17:39 400 ML Enteral Nutritional Formula 110 ml QID PO 01/17/25 12:00 01/21/25 18:33 110 ML Furosemide 40 mg DAILY PO 01/18/25 10:00 01/21/25 10:29 40 MG Ondansetron HCl 4 mg Q4HPRN PRN IV 01/19/25 19:30 01/19/25 19:51 4 MG Ertapenem 1 gm DAILY IM 01/20/25 15:00 UNV Ertapenem 1 gm DAILY IM 01/21/25 10:00 UNV Ertapenem 1 gm/ Sodium Chloride 50 ml @ 100 mls/hr DAILY IV 01/20/25 15:03 01/21/25 12:08 100 MLS/HR Insulin Glargine 25 units HS SC 01/20/25 22:00 01/21/25 22:27 25 UNITS Ciprofloxacin 500 mg Q12HR PO 01/22/25 10:00 objective Gen.: Patient lying in bed in medical ICU. On mechanical ventilator via trach. Head: Normocephalic, atraumatic. Eyes: PERRLA. Ears: Normal external anatomy. Throat: Endotracheal tube and orogastric tube in place. Neck: Trach in place. Chest: Transmitted breath sounds bilaterally. Decreased air entry bilaterally. No wheezing. Bibasilar crackles. Cardiovascular: Positive S1, positive S2. Regular rate and rhythm. Abdomen: Positive bowel sounds in all 4 quadrants. Soft, nontender, nondistended. : Agrawal in place. Normal external genitalia. Rectal: Deferred. Skin: Warm, dry. Intact. Extremities: 2+ radial pulses bilaterally. No lower extremity edema. Neuro: Off sedation laboratory and microbiology Laboratory Tests 01/21/25 04:08 Test 01/21/25 04:08 Range/Units Serum Glucose 143 H 74-106 mg/dL Assessment/Plan Impression: Acute hypoxic respiratory failure On mechanical ventilator S/p tracheostomy Septic shock Symptomatic bradycardia Metabolic encephalopathy Amyotrophic lateral sclerosis Events: Remains on vent via trach Vent support PRN OK to come off ventilator for meals. Continue trach care per RT. Note, pt had a reaction to Zosyn on 01/16/25 and required pressors for 1 hour, tapered off. Remains off pressors for 5 days. Hemodynamically stable. Continue antibiotics Sputum cx grew Pseudomonas aeruginosa and Providencia stuartii Blood cultures initially grew Staphylococcus schleiferi - repeat blood cx show no growth for 72 hours. ID recommendations appreciated. WBC within normal limits. Continue bronchodilators HOB elevation Aspiration precautions Accu-Cheks, ISS. Protonix for GI prophylaxis. Maintain euvolemia on Lasix Free water via GT for hydration d/t metabolic acidosis Monitor renal function Monitor electrolytes. Supplement as necessary. Monitor ins and outs. Labs and imaging reviewed. Rest of plan as noted below. Plan: On mechanical ventilator via tracheostomy. Vent settings: AC mode with RR 16, VT 450, Peep +5, with an Fi02 set at 35%. Patient has a 7.0 trach [place] secured with trach ties. Cuff pressure set at [id number]. Titrate FIO2 to keep O2 saturation above 90%. Head of bed elevation Aspiration precautions Trach care per RT Bronchodilators. Antibiotics. Pressors as necessary for hemodynamic support Titrate to keep mean arterial pressure greater than 65 mmHg. Follow up Cardiology recommendations Accu-Cheks, ISS. Protonix for GI prophylaxis. Monitor renal function Monitor electrolytes. Supplement as necessary. Monitor ins and outs. Maintain euvolemia w/ Lasix. Monitor CBC, BMP, lactate GI prophylaxis. DVT prophylaxis. Prognosis: Poor given patient's multiple co-morbidities. Rest of plan per hospitalist and other consultants. Thank you, LEONEL Franklin, for allowing me to participate in this patient's care. Further recommendations will depend on the patient's clinical course. Please do not hesitate to contact me if you have any questions or concerns. This medical document was created using an electronic medical record system with [employer] dictation system. Although these documentations are being carefully reviewed, there may still be some phonetic and typographical changes. The errors are purely typographical, due to imperfection on the software program, and do not reflect any compromise in the patient's medical care. Dietary Evaluation Review Comments: 1) [facility] + cardiac diet as medically feasible 2) If pt cannot tolerate PO, consider TF Glucerna 1.2Cal @ 70ml/hr (goal). 3) Monitor wt trend, lab values, skin integrity Expected Outcomes/Goals: To meet >75% estimated needs Fu 2-3 days Plan discussed with: Patient, Other (KATJA Abrams) XAVIER BECKER MD Jan 21, 2025 23:53
[2025-01-22] VITALS (37 sets, daily range): BP systolic 112–142; BP diastolic 72–83; PULSE 85–101; RESP 16–44; TEMP 97.7–98.7; O2SAT 98–100
[2025-01-22] MEDS: LINEZOLID 600MG TABLET PO SCH (10:47)
[2025-01-22] MEDS: CIPROFLOXACIN HCL 500 MG TAB PO SCH (11:05)
--- NOTE | 2025-01-22 19:14 | DVHDS2 ---
Discharge Summary Date of Admission Jan 15, 2025 at 20:18 Date of Discharge: Jan 22, 2025 Labs/Diagnostic Data: Laboratory Results Test 01/21/25 17:32 01/21/25 04:08 01/17/25 19:52 01/16/25 14:30 POC Glucose 142 mg/dl (70-106) White Blood Count 5.7 10^3/uL (4.4-10.8) Red Blood Count 4.84 10^6/uL (4.5-5.90) Hemoglobin 14.3 g/dL (13.5-17.5) Hematocrit 42.7 % (41.0-53.0) Mean Corpuscular Volume 88.4 fL (80.0-100.0) Mean Corpuscular Hemoglobin 29.5 pg (28.0-32.0) Mean Corpuscular Hemoglobin Concent 33.4 g/dL (32.0-36.0) Red Cell Distribution Width 15.6 % (11.8-14.3) Platelet Count 267 10^3/uL (140-450) Mean Platelet Volume 10.3 fL (6.9-10.8) Neutrophils (%) (Auto) 43.5 % (37.0-80.0) Lymphocytes (%) (Auto) 37.7 % (10.0-50.0) Monocytes (%) (Auto) 14.2 % (0.0-12.0) Eosinophils (%) (Auto) 4.4 % (0.0-7.0) Basophils (%) (Auto) 0.2 % (0.0-2.0) Neutrophils # (Auto) 2.5 10 ^3/uL (1.6-8.6) Lymphocytes # (Auto) 2.1 10 ^3/uL (0.4-5.4) Monocytes # (Auto) 0.8 10 ^3/uL (0-1.3) Eosinophils # (Auto) 0.2 10 ^3/uL (0-0.8) Basophils # (Auto) 0 10 ^3/uL (0-0.2) Nucleated Red Blood Cells 0.1 % Sodium Level 138 mmol/L (136-145) Potassium Level 3.3 mmol/L (3.5-5.1) Chloride Level 107 mmol/L (98-107) Carbon Dioxide Level 20 mmol/L (20-31) Anion Gap 11 (5-15) Blood Urea Nitrogen 9 mg/dL (9-23) Creatinine 0.16 mg/dL (0.700-1.30) Glomerular Filtration Rate Calc 159 mL/min (>90) BUN/Creatinine Ratio 56.3 (10.0-20.0) Serum Glucose 143 mg/dL (74-106) Calcium Level 8.5 mg/dL (8.7-10.4) Total Bilirubin 0.6 mg/dL (0.2-1.0) Aspartate Amino Transferase (AST) 27 U/L (13-40) Alanine Aminotransferase (ALT) 35 U/L (7-40) Alkaline Phosphatase 78 U/L (46-116) Total Protein 6.1 g/dL (5.7-8.2) Albumin 3.8 g/dL (3.2-4.8) Magnesium Level 2.2 mg/dL (1.6-2.6) Blood Gas Specimen Type Venous Blood Gas Sample Site Other Blood Gas Patient Temperature 37.0 Arterial Blood Date Drawn [id number] [place] Test N/a Venous Blood pH 7.432 (7.320-7.430) Venous Blood pCO2 at Patient Temp 21.0 mmHg (38.0-54.0) Venous Blood pO2 at Patient Temp 51.5 mmHg (23.0-48.0) Venous Blood HCO3 13.7 mmol/L (22.0-29.0) Venous Blood Base Excess -8.0 mmol/L (-2.0-3.0) Blood Gas Set Respiration Rate 16.0 Blood Gas Modality Vent - ac FiO2 % 35.0 Blood Gas Tidal Volume 450.0 Blood Gas PEEP or CPAP 5.0 Blood Gas Comments Test 01/16/25 13:21 01/16/25 09:22 01/16/25 05:09 01/15/25 15:21 Urine Color Yellow (Yellow) Urine Clarity Turbid (Clear) Urine pH 6.0 (5.0-9.0) Urine Specific [place] 1.020 (1.001-1.035) Urine Protein 1+ (Negative) Urine Ketones 3+ (Negative) Urine Blood Negative /uL (Negative) Urine Nitrite Negative (Negative) Urine Bilirubin Negative (Negative) Urine Urobilinogen Normal mg/dL (Negative) Urine Leukocyte Esterase Negative /uL (Negative) Urine RBC 2 /hpf (0 - 3) Urine Microscopic WBC 13 /HPF (0-3) Urine Squamous Epithelial Cells Few /hpf (<5) Urine Bacteria Few /hpf (None Seen) Urine Hyaline Casts Few /lpf (0 - 2) Urine Mucus Few (None Seen) Urine Glucose Normal mg/dL (Normal) Lactic Acid Level 2.0 mmol/L (0.4-2.0) Differential Total Cells Counted 100.0 (100) Neutrophils % (Manual) 73 (37.0-80.0) Band Neutrophils % (Manual) 0 Lymphocytes % (Manual) 9 (10.0-50.0) Monocytes % (Manual) 18 (0-12) Eosinophils % (Manual) 0 (0-7) Basophils % (Manual) 0 (0.0-2.0) Metamyelocytes % (manual) 0 Myelocytes % (Manual) 0 Promyelocytes % (Manual) 0 Blast Cells % (Manual) 0 Reactive Lymphocytes 0 Platelet Estimate Adequate B-Type Natriuretic Peptide 44.98 pg/mL (0-100) Other Laboratory Tests 01/21/25 04:08 Final Diagnosis/Problems List 64-year-old male with a known history of ALS, chronic tracheostomy currently on mechanical ventilation, status post G-tube placement, hypertension, dyslipidemia initially presented to hospital with altered mental status and hypotension found to have 1. Septic shock secondary to Gram-positive bacteremia, repeat blood cultures are negative 2. Gram-positive bacteremia repeat blood cultures are negative 3. ALS 4. Chronic tracheostomy with the mechanical ventilation 5. Status post G-tube placement for nutrition 6. Hypotension currently off of vasopressors 7. Lactic acidosis 8. Pseudomonas and Providencia pneumonia Discharge Disposition: Home with Health Services Discharge Instruct/Medications Diet: Cardiac 2g Na,low cholest Diet comment: On G-tube feeding as well Activity: See Comment Activity comment: Bed-bound. Follow Up/Referral: Follow up with the PCP and Pulmonary in 1-2 weeks Follow up with the infectious disease specialists within 1-2 weeks if needed. Medications: On ertapenem 1 g IM daily for five more days. Scheduled Ascorbic Acid (Vitamin C Tablet), 1,000 MG GT BID, (Reported) Aspirin (Aspirin 81), 81 MG GT DAILY, (Reported) Atorvastatin Calcium (Atorvastatin Calcium), 1 TAB PO DAILY, (Reported) Cholecalciferol (Vitamin D3), 2,500 UNIT GT DAILY, (Reported) Ciprofloxacin Hydrochloride (Ciprofloxacin HCl), 500 MG GT BID Furosemide (Furosemide), 1 TAB PO DAILY, (Reported) Insulin Glargine-Yfgn (Insulin Glargine), 28 UNIT SC HS, (Reported) Ipratropium [place] Hfa (Atrovent Hfa), 2 PUFF INH QID, (Reported) Lisinopril (Lisinopril), 1 TAB PO DAILY, (Reported) Multiple Vitamin (Multivitamins), 1 TAB PO DAILY, (Reported) Pseudoephedrine-Guaifenesin (Mucinex D), 1 TAB PO Q8HPRN, (Reported) Scheduled PRN Acetaminophen (Acetaminophen), 500 MG PO Q6HR PRN for MILD PAIN (1-3 PAIN SCALE), (Reported) Furosemide (Furosemide), 1 TAB PO DAILY PRN for BREAKTHROUGH PAIN, (Reported) Polyethylene Glycol (Miralax), 17 GM GT PRN PRN for FOR CONSTIPATION, (Reported) Miscellaneous Medications Insulin Aspart (Novolog), 100 UNIT IJ, (Reported) Discharge Statement: "Patient was advised to return to the ER or call 911 if any headaches, dizziness, shortness of breath, chest pain, abdominal pain, bleeding, fevers, or worsening of medical condition. Patient was counseled about treatment plan, medications, possible side effects, patientverbalized understanding. All questions were answered to the best of my ability. This discharge took greater then 30 minutes in planning, reviewing documentation, counseling the patient, and discussing with other team members." ASSESSMENT ASSESSMENT Assessment 64-year-old male with a known history of ALS, chronic tracheostomy currently on mechanical ventilation, status post G-tube placement, hypertension, dyslipidemia initially presented to hospital with altered mental status and hypotension found to have 1. Septic shock secondary to Gram-positive bacteremia, repeat blood cultures are negative 2. Gram-positive bacteremia repeat blood cultures are negative 3. ALS 4. Chronic tracheostomy with the mechanical ventilation 5. Status post G-tube placement for nutrition 6. Hypotension currently off of vasopressors 7. Lactic acidosis 8. Pseudomonas and Providencia pneumonia ABIDA BELLO MD Jan 22, 2025 19:14
--- NOTE | 2025-01-22 22:32 | DVHPN2 ---
Progress Note - Dictate Date Seen: Jan 22, 2025 Medical Necessity Reason Pt with a Central, PICC or Fol: No Subjective Patient seen and examined at bedside. On mechanical ventilator via trach Overnight events reviewed. vital signs Vital Sign Date Time Temp Pulse Resp B/P (MAP) Pulse Ox O2 Delivery O2 Flow Rate FiO2 01/22/25 21:22 98.7 01/22/25 21:00 96 29 136/81 (99) 99 01/22/25 20:24 35 01/22/25 20:00 Mechanical Ventilator+ Total Intake and Output 01/21/25 01/21/25 01/22/25 15:00 23:00 07:00 Intake Total 350 ml 1280 ml 800 ml Output Total 1400 ml Balance 350 ml -120 ml 800 ml medications Current Medications Medications Dose Ordered Sig/Robe Route Start Time Stop Time Status Last Admin Dose Admin Ertapenem 1 gm DAILY IM 01/20/25 15:00 UNV Ertapenem 1 gm DAILY IM 01/21/25 10:00 UNV objective Gen.: Patient lying in bed in medical ICU. On mechanical ventilator via trach. Head: Normocephalic, atraumatic. Eyes: PERRLA. Ears: Normal external anatomy. Throat: Endotracheal tube and orogastric tube in place. Neck: Trach in place. Chest: Transmitted breath sounds bilaterally. Decreased air entry bilaterally. No wheezing. Bibasilar crackles. Cardiovascular: Positive S1, positive S2. Regular rate and rhythm. Abdomen: Positive bowel sounds in all 4 quadrants. Soft, nontender, nondistended. : Agrawal in place. Normal external genitalia. Rectal: Deferred. Skin: Warm, dry. Intact. Extremities: 2+ radial pulses bilaterally. No lower extremity edema. Neuro: Off sedation laboratory and microbiology Laboratory Tests 01/21/25 04:08 Test 01/21/25 04:08 Range/Units Serum Glucose 143 H 74-106 mg/dL Assessment/Plan Impression: Acute hypoxic respiratory failure On mechanical ventilator S/p tracheostomy Septic shock Symptomatic bradycardia Metabolic encephalopathy Amyotrophic lateral sclerosis Events: Remains on vent via trach Vent support PRN OK to come off ventilator for meals. Continue trach care per RT. Note, pt had a reaction to Zosyn on 01/16/25 and required pressors for 1 hour, tapered off. Remains off pressors for 6 days. Hemodynamically stable. Continue antibiotics Sputum cx grew Pseudomonas aeruginosa and Providencia stuartii Blood cultures initially grew Staphylococcus schleiferi - repeat blood cx show no growth for 72 hours. ID recommendations appreciated. WBC within normal limits. Continue bronchodilators HOB elevation Aspiration precautions Accu-Cheks, ISS. Protonix for GI prophylaxis. Maintain euvolemia on Lasix Free water via GT for hydration d/t metabolic acidosis Monitor renal function Monitor electrolytes. Supplement as necessary. Monitor ins and outs. Supportive care. Patient awaiting discharge. Labs and imaging reviewed. Rest of plan as noted below. Plan: On mechanical ventilator via tracheostomy. Vent settings: AC mode with RR 16, VT 450, Peep +5, with an Fi02 set at 35%. Patient has a 7.0 trach Shiley secured with trach ties. Cuff pressure set at [id number]. Titrate FIO2 to keep O2 saturation above 90%. Head of bed elevation Aspiration precautions Trach care per RT Supportive care. Bronchodilators. Antibiotics. Pressors as necessary for hemodynamic support Titrate to keep mean arterial pressure greater than 65 mmHg. Follow up Cardiology recommendations Accu-Cheks, ISS. Protonix for GI prophylaxis. Monitor renal function Monitor electrolytes. Supplement as necessary. Monitor ins and outs. Maintain euvolemia w/ Lasix. Monitor CBC, BMP, lactate GI prophylaxis. DVT prophylaxis. Prognosis: Poor given patient's multiple co-morbidities. Rest of plan per hospitalist and other consultants. Thank you, LEONEL Franklin, for allowing me to participate in this patient's care. Further recommendations will depend on the patient's clinical course. Please do not hesitate to contact me if you have any questions or concerns. This medical document was created using an electronic medical record system with [employer] dictation system. Although these documentations are being carefully reviewed, there may still be some phonetic and typographical changes. The errors are purely typographical, due to imperfection on the software program, and do not reflect any compromise in the patient's medical care. Dietary Evaluation Review Comments: 1) Advance to [facility] 60gm + cardiac diet as medically feasible 2) If pt cannot tolerate PO, consider TF Glucerna 1.2Cal @ 70ml/hr (goal). 3) Monitor wt trend, lab values, skin integrity Expected Outcomes/Goals: To meet >75% estimated needs Fu 2-3 days Plan discussed with: Patient, Other (KATJA Dyer) XAVIER BECKER MD Jan 22, 2025 22:32
== END 2025-01-22 21:50 | disposition home health service (06) | DRG 870 ==
LOC: ER 14:57 → EDBD 14:57 → OVERFLOW 20:18 → DOU IN ICU 01-16 00:16
PROVIDERS: ADMIT Nurse Practitioner Family; ATTEND Nurse Practitioner Family
PROC: 5A1955Z Respiratory Ventilation, Greater than 96 Consecutive Hours (ICD-10-PCS; principal; 2025-01-15)
PROC: 05HF33Z Insertion of Infusion Device into Left Cephalic Vein, Percutaneous Approach (ICD-10-PCS; 2025-01-16)
PROC: B54NZZA Ultrasonography of Left Upper Extremity Veins, Guidance (ICD-10-PCS; 2025-01-16)
DX: A41.2 Sepsis due to unspecified staphylococcus (principal); R65.21 Severe sepsis with septic shock; G93.41 Metabolic encephalopathy; J96.01 Acute respiratory failure with hypoxia; J15.69 Pneumonia due to other Gram-negative bacteria; J15.1 Pneumonia due to Pseudomonas; G12.21 Amyotrophic lateral sclerosis; E87.20 Acidosis, unspecified; I16.1 Hypertensive emergency; I31.39 Other pericardial effusion (noninflammatory); G89.29 Other chronic pain; E78.5 Hyperlipidemia, unspecified; E11.9 Type 2 diabetes mellitus without complications; I10 Essential (primary) hypertension; T36.0X5A Adverse effect of penicillins, initial encounter; Z93.1 Gastrostomy status; Z93.0 Tracheostomy status; Z74.01 Bed confinement status; Y92.89 Other specified places as the place of occurrence of the external cause; Z83.3 Family history of diabetes mellitus; Z82.5 Family history of asthma and other chronic lower respiratory diseases; Z82.49 Family history of ischemic heart disease and other diseases of the circulatory system; Z88.0 Allergy status to penicillin; Z88.8 Allergy status to other drugs, medicaments and biological substances; Z79.82 Long term (current) use of aspirin; Z79.02 Long term (current) use of antithrombotics/antiplatelets; Z79.899 Other long term (current) drug therapy; Z79.4 Long term (current) use of insulin
CPT/HCPCS: 36415; 36600; 70450; 71045; 80048; 80053; 81001; 82805; 82962; 83605; 83735; 83880; 84132; 85007; 85025; 85027; 87040; 87070; 87077; 87081; 87086; 87186; 87205; 93306; 93970; 94002; 94003; 94640; 94644; 94668; 99291; G0378; J1335; J1815; J2003; J2405; J2470; J2543